=== PATIENT | female | born 1955 | race Caucasian/White ===

== ENCOUNTER → 2024-02-27 | Outpatient (CLI) | payer MEDICARE, BC, SELFPAY ==
[2024-02-27 11:51] LABS: Collection Type, Urine Clean Catch
[2024-02-27 12:15] LABS: Basophils % (Auto) 0 % (0-2.5); Eosinophils # (Auto) 0.1 Thou/mm3 (0.0-0.5); Eosinophils % (Auto) 1 % (0-10); Hemoglobin 13.8 g/dL (12.0-16.0); Immature Granulocytes % (Auto) 1 % (0-0); Immature Granulocytes Auto 0.04 Thou/mm3 (0.00-0.00); Lymphocytes # (Auto) 1.5 Thou/mm3 (1.0-4.8); Lymphocytes % (Auto) 20 % (10-50); Mean Corpuscular HGB Conc 35.4 g/dl (31.0-37.0); Mean Corpuscular Hemoglobin 32.4 pg (25.0-35.0); Mean Corpuscular Volume 92 fL (80-100); Monocytes # (Auto) 0.3 Thou/mm3 (0.0-0.8); Monocytes % (Auto) 4 % (0-12); Neutrophils # (Auto) 5.5 Thou/mm3 (1.8-7.7); Neutrophils % (Auto) 74 % (37-80); Nucleated Red Blood Cell % 0 /100 WBC (0); Platelet Count 208 Thou/mm3 (140-440); RDW Standard Deviation 48.3 fL (36.4-46.3); Red Blood Count 4.26 Miln/mm3 (4.00-5.20); White Blood Count 7.5 Thou/mm3 (3.6-11.0)
[2024-02-27 12:22] LABS: Bilirubin,Urine Negative (Negative); Blood,Urine 1+ (Negative); Clarity,Urine Clear (Clear/Hazy); Color,Urine Colorless (Lt Yel-Yel); Culture Indicated,Urine Not Indicated; Glucose, Urine Negative (Negative); Ketones,Urine Negative (Negative); Leukocyte Esterase,Urine Negative (Negative); Nitrite,Urine Negative (Negative); Protein,Urine Negative (Neg - Trace); RBC,Urine 3 /hpf (0-3); Specific Gravity,Urine 1.004 (1.001-1.035); Squamous Epithelial Cell,Urine < 1 /hpf (0-5); Urobilinogen,Urine Negative mg/dL (0.0-1.0); WBC,Urine 1 /hpf (0-5)
[2024-02-27 12:29] LABS: Glucose Estimated Average 85 mg/dL (80-131); Hemoglobin A1C 4.6 % Hgb (4.8-6.0)
[2024-02-27 12:37] LABS: Vitamin B12 803 pg/mL (211-911); Vitamin D 25 Hydroxy Total 15.8 ng/mL (7.3-40.2)
[2024-02-27 12:45] LABS: Alanine Aminotransferase 11 U/L (10-49); Albumin, Serum 4.6 gm/dL (3.4-4.8); Albumin/Globulin Ratio 2.2 (1.2-2.2); Alkaline Phosphatase 55 U/L (46-116); Anion Gap 6 (7-16); Aspartate Amino Transferase 12 U/L (0-34); BUN/Creatinine Ratio 13 Ratio (12-20); Bilirubin,Total 0.7 mg/dL (0.3-1.2); Blood Urea Nitrogen 8 mg/dL (9-23); Carbon Dioxide 26.1 mMol/L (20.0-31.0); Cardiac Risk Estimate 2.1 RATIO (3.7-5.6); Chloride 110 mMol/L (98-107); Cholesterol 151 mg/dL (132-200); Creatinine (Component) 0.6 mg/dL (0.6-1.3); Globulin 2.1 gm/dL (2.3-3.5); Glucose 94 mg/dL (74-106); HDL Cholesterol 71 mg/dL (40-60); LDL Cholesterol,Calculated 69 mg/dL (0-130); Osmolality,Calculated 281 (275-295); Potassium 3.6 mMol/L (3.4-5.1); Sodium 142 mMol/L (136-145); Thyroid Stimulating Hormone 3.05 uIU/mL (0.55-4.78); Total Protein 6.7 gm/dL (5.7-8.2); Triglycerides 55 mg/dL (30-150); eGFR > 60 See Note
== END | disposition home or self-care (01) ==
LOC: COPL 11:15
PROVIDERS: PCP Family Medicine; Referring Provider Registered Nurse; Visit Provider Registered Nurse
DX: I10 Essential (primary) hypertension (principal); R79.89 Other specified abnormal findings of blood chemistry
CPT/HCPCS: 36415; 80053; 80061; 81001; 82306; 82607; 83036; 84443; 85025

== ENCOUNTER 2024-05-05 09:01 | Emergency (ER) | payer MEDICARE, SELFPAY ==
[2024-05-05 09:14] VITALS: BP 120/76; PULSE 104; RESP 17; TEMP 37; O2SAT 96; BMI 19.5
--- NOTE | 2024-05-05 09:17 | XR_ITS ---
Examination: CT abdomen and pelvis without contrast. Coronal 3-D reconstructions. Sagittal 2-D reconstructions. Date and time of exam:May 05, 2024 0931 hours INDICATIONS: Generalized abdominal pain and constipation beginning 8 days ago CTDI: vol (mGy): 4.31 DLP: (mGycm): 197 Technique: Axial images of the abdomen have been obtained, 3 mm slice thickness Intravenous contrast material has not been administered. Low dose protocols were performed. One or more of the following dose reduction techniques were used; automated exposure control, adjustment of the mA and/or KV according to patient size, use of iterative reconstruction technique. Findings: 11 mm liver cyst, hepatomegaly 18 cm Cholelithiasis Spleen is not enlarged Heavy calcification abdominal aorta and abdominal vasculature Moderate bilateral renal parenchymal calcification 4 mm soft calculus left kidney and multiple 1 to 4 mm calcifications right kidney No hydronephrosis or ureteral calculi No bowel obstruction Normal appendix No pelvic mass Urinary bladder intact Advanced disc narrowing L5-S1 16 mm sclerotic focus upper posterior margin L4 IMPRESSION: Hepatomegaly, 18 cm Cholelithiasis, recommend hepatobiliary sonography follow-up Bilateral nonobstructing renal calculi Normal appendix No bowel obstruction Colonic diverticulosis, no diverticulitis 16mm abnormal sclerotic focus L4, recommend elective MRI lumbar spine pre and postcontrast to exclude osteoblastic metastasis
--- NOTE | 2024-05-05 10:06 | PD.EDRME ---
Rapid Medical Screening Exam RME Arrival date/time: 05/05/24 09:01 68-year-old female presents emergency department complaint of abdominal pain and constipation patient reports he is having for constipation for the last few months patient reports she was supposed to have a colonoscopy but missed her appointment for her colonoscopy patient reports that she is scheduled to have colonoscopy in June with Dr Cardenas Chief Complaint: Abdominal Pain Time Seen by Provider: 05/05/24 09:03 Vital signs: Vital Signs Temperature 98.6 F 05/05/24 09:14 Pulse Rate 104 H 05/05/24 09:14 Respiratory Rate 17 05/05/24 09:14 Blood Pressure 120/76 05/05/24 09:14 Pulse Oximetry (%) 96 05/05/24 09:14 Oxygen Delivery Method Room Air 05/05/24 09:14
[2024-05-05 10:23] LABS: Basophils % (Auto) 0 % (0-2.5); Eosinophils % (Auto) 0 % (0-10); Hematocrit 36.9 % (36.0-46.0); Immature Granulocytes % (Auto) 1 % (0-0); Immature Granulocytes Auto 0.04 Thou/mm3 (0.00-0.00); Lymphocytes % (Auto) 14 % (10-50); Mean Corpuscular HGB Conc 35.2 g/dl (31.0-37.0); Mean Corpuscular Hemoglobin 32.3 pg (25.0-35.0); Mean Corpuscular Volume 92 fL (80-100); Monocytes # (Auto) 0.3 Thou/mm3 (0.0-0.8); Monocytes % (Auto) 4 % (0-12); Neutrophils # (Auto) 5.7 Thou/mm3 (1.8-7.7); Neutrophils % (Auto) 81 % (37-80); Nucleated Red Blood Cell % 0 /100 WBC (0); Platelet Count 161 Thou/mm3 (140-440); RDW Standard Deviation 48.3 fL (36.4-46.3); Red Blood Count 4.02 Miln/mm3 (4.00-5.20)
[2024-05-05 10:48] LABS: Alanine Aminotransferase 10 U/L (10-49); Albumin, Serum 4.3 gm/dL (3.4-4.8); Alkaline Phosphatase 49 U/L (46-116); Anion Gap 8 (7-16); Aspartate Amino Transferase 15 U/L (0-34); BUN/Creatinine Ratio 10 Ratio (12-20); Bilirubin,Total 0.7 mg/dL (0.3-1.2); Blood Urea Nitrogen 6 mg/dL (9-23); Calcium 9.9 mg/dL (8.3-10.6); Calcium (Corrected) 9.9 mg/dL (8.5-10.1); Chloride 106 mMol/L (98-107); Creatinine (Component) 0.6 mg/dL (0.6-1.3); Estimated Creatinine Clearance 72.9 mL/min (>60); Globulin 2.2 gm/dL (2.3-3.5); Glucose 91 mg/dL (74-106); Lipase 23 U/L (12-53); Osmolality,Calculated 275 (275-295); Potassium 3.8 mMol/L (3.4-5.1); Sodium 139 mMol/L (136-145); Total Protein 6.5 gm/dL (5.7-8.2); eGFR > 60 See Note
[2024-05-05 10:52] LABS: Collection Type, Urine Clean Catch
[2024-05-05 11:06] LABS: Bilirubin,Urine Negative (Negative); Blood,Urine 2+ (Negative); Clarity,Urine Clear (Clear/Hazy); Color,Urine Colorless (Lt Yel-Yel); Culture Indicated,Urine Not Indicated; Glucose, Urine Negative (Negative); Ketones,Urine 2+ (Negative); Leukocyte Esterase,Urine Negative (Negative); Nitrite,Urine Negative (Negative); Protein,Urine Negative (Neg - Trace); RBC,Urine 3 /hpf (0-3); Specific Gravity,Urine 1.007 (1.001-1.035); Squamous Epithelial Cell,Urine < 1 /hpf (0-5); Urobilinogen,Urine Negative mg/dL (0.0-1.0); WBC,Urine 1 /hpf (0-5)
--- NOTE | 2024-05-05 12:20 | EDNOTE_ITS ---
ED Abdominal Pain RME/HPI General Chief Complaint: Abdominal Pain Stated complaint: ABD PAIN, NO BM X1 WEEK Time seen by provider: 05/05/24 09:03 Arrival date/time: 05/05/24 09:01 RME / HPI RME / HPI narrative: 05/05/24 09:01 68-year-old female presents emergency department complaint of abdominal pain and constipation patient reports he is having for constipation for the last few months patient reports she was supposed to have a colonoscopy but missed her appointment for her colonoscopy patient reports that she is scheduled to have colonoscopy in June with Dr Cardenas This section includes all my notes and documentations, including HPI, PE, and ED course.? David Talavera MD HPI: 68 year old female with no stated chronic medical history presents to the ED for evaluation of abdominal pain and constipation today. States the constipation began 8 days ago and in the last week is only passing small amounts of brown water , no solid stool. Beginning yesterday has had pain to her lower abdomen L>R, rating as moderate. Accompanied by nausea. Reportedly has attempted magnesium citrate, enema's, stool softeners, and a probiotic colon cleanse without improvement. Denies any fevers, chills, vomiting, or urinary symptoms. ROS: All negative except as documented in HPI. Physical Exam: General:? Alert and oriented.?? Eyes:? Conjunctivae and lids clear.?? ENT:? No nasal congestion.?? Neck:? Supple.?? Heart:? RRR.? Lungs:? No respiratory distress.?? Abdomen:? Soft and nontender.??No distention. No rebound or guarding. Normal BS. Skin:? Warm and dry.?? Neuro:? Alert and oriented X 3.?? I reviewed all diagnostic test results. My review of the CT report shows?no bowel obstruction. Blood tests and urine tests?unremarkable. At this point, diagnoses include?constipation. Recommended conservative treatment. Based on my best medical judgment, made decision no further evaluation or treatment indicated at this time.? Patient understands and agrees to the discharge instructions customized and printed, see below. Discharge instructions from Dr. Talavera printed for you: ?After extensive evaluation, there is no emergency.? Such as appendicitis or complete bowel obstruction needing urgent surgery. --You have constipation. ?Take Senokot S (not plain Senokot, OTC so prescription not needed), four pills, at bedtime as needed.? Add milk of magnesia as prescribed. May take a few days but this will help clear out your bowels. ?To help current constipation and prevent future constipation, increase oral fluid because dehydration cause severe constipation.? Maintain clear urine.? If dark or yellow, increase oral fluid. ?And every day, increase fresh fruits and fresh vegetables and physical exercise. ?See a private doctor on 05/08/2024 for recheck and further care. Ask to review all test results and official radiology reports, to make sure you receive all necessary follow-ups and monitoring. To make sure there is no serious underlying abdominal condition, ask to help you get more care not available here in the ER.? Such as EGD or scoping of your stomach, colonoscopy or scoping the colon, and a referral to see a client technical professional. ?Seek immediate medical care with worsening or with any concerns. Related Data Previous Rx's ?Medication ?Instructions ?Recorded magnesium hydroxide 2,400 mg/10 mL 30 ml PO QDAY PRN constipation #60 05/05/24 oral suspension (Milk Of Magnesia mL Concentrated) sennosides 8.6 mg-docusate sodium 4 tab-cap (4 x 8.6-50 mg) PO QDAY 05/05/24 50 mg tablet (Senokot-S) PRN constipation #20 tabs Allergies Allergy/AdvReac Type Severity Reaction Status Date / Time codeine Allergy Verified 05/05/24 09:04 Penicillins Allergy Verified 05/05/24 09:04 Review of Systems Review of Systems Systems Reviewed: All systems reviewed, normal except as documented Past Medical History Social History SMOKING STATUS: Light (< 1 pack/day) ED Exam Narrative Physical exam: As noted in HPI Course Quality Measures none Orders Category Date Time Status Consult to Gastroenterology Stat Cons 05/05/24 09:[address] abdomen pelvis wo con Stat Exams 05/05/24 09:17 Completed CBC Stat Lab 05/05/24 09:50 Completed Comprehensive Metabolic Panel Stat Lab 05/05/24 09:50 Completed Lipase Stat Lab 05/05/24 09:50 Completed UA, C/S IF [Urinalysis, C/S if Indicated] Stat Lab 05/05/24 10:44 Completed Vital Signs Vital signs: Vital Signs Temperature 98.6 F 05/05/24 09:14 Pulse Rate 104 H 05/05/24 09:14 Respiratory Rate 17 05/05/24 09:14 Blood Pressure 120/76 05/05/24 09:14 Pulse Oximetry (%) 96 05/05/24 09:14 Oxygen Delivery Method Room Air 05/05/24 09:14 Pulse ox is 96% on room air which is adequate. Abdominal Pain MDM MDM Narrative MDM Narrative:: Savanah Jiménez am scribing for and in the presence of Dr. Talavera. Patient data External records reviewed:: [facility] previous records (Per EMR review, no previous visits for review. ) Clinical information provided by:: patient Social determinants that could affect healthcare access:: none Patient has the following chronic illnesses:: None reported How is presenting disease/condition affected by chronic disease/condition?: no chronic disease Evaluation data The following diagnostics were reviewed and interpreted by me:: lab results and radiology exam(s) Lab and/or radiology exams considered but not ordered:: none Interpretation Summary: My review of the CT report shows?no bowel obstruction. Medications / Prescriptions Medications or Prescriptions considered but not ordered:: none Medication administrations:: none Consultations Consultation(s) initiated? (list below): No Diagnosis Differential diagnosis abdominal pain: abdominal pain, calculus of kidney, constipation, diverticulitis, gastroenteritis and small bowel obstruction Most likely diagnosis given after review of the tests above:: Constipation Admission Indicated Admission indicated?: not indicated Explain why admission is indicated or not indicated:: Does not meet admission criteria Admission Request Was there a request for admission?: No Disposition Plan Disposition Plan: Discharge Discharge Attestation Discharge Attestation: The patient and all family members were given an opportunity to ask questions and understood the discharge instructions. Discharge instructions specifically effects, indications for sooner follow up or return to the emergency department, and the expected course of current diagnosis. Patient condition: Stable Discharge Plan Plan Patient Disposition: HOME (Self Care) Prescriptions/Referrals Prescriptions/Med Rec: New sennosides-docusate sodium [Senokot-S] 8.6-50 mg tablet 4 tab-cap PO QDAY PRN (Reason: constipation) Qty: 20 0RF magnesium hydroxide [Milk Of Magnesia Concentrated] 2,400 mg/10 mL suspension 30 ml PO QDAY PRN (Reason: constipation) Qty: 60 0RF Referrals: Danny Belle MD [Primary Care Provider] - In 1 week Problem List Clinical Impression: Constipation Patient/Caregiver Discharge Instructions Discharge Activity: activity as tolerated Education Materials: ED Constipation (Adult) Additional Instructions: Discharge instructions from Dr. Talavera printed for you: ?After extensive evaluation, there is no emergency.? Such as appendicitis or complete bowel obstruction needing urgent surgery. --You have constipation. ?Take Senokot S (not plain Senokot, OTC so prescription not needed), four pills, at bedtime as needed.? Add milk of magnesia as prescribed. May take a few days but this will help clear out your bowels. ?To help current constipation and prevent future constipation, increase oral fluid because dehydration cause severe constipation.? Maintain clear urine.? If dark or yellow, increase oral fluid. ?And every day, increase fresh fruits and fresh vegetables and physical exercise. ?See a private doctor on 05/08/2024 for recheck and further care. Ask to review all test results and official radiology reports, to make sure you receive all necessary follow-ups and monitoring. To make sure there is no serious underlying abdominal condition, ask to help you get more care not available here in the ER.? Such as EGD or scoping of your stomach, colonoscopy or scoping the colon, and a referral to see a client technical professional. ?Seek immediate medical care with worsening or with any concerns. Print Language: Nigerian Stand Alone Forms: [employer] [employer] Info., Patient Portal Info Letter
[2024-05-05 12:38] VITALS: BP 158/81; PULSE 82; RESP 19; TEMP 36.8; O2SAT 97
== END 2024-05-05 12:43 | disposition home or self-care (01) ==
PROVIDERS: Nurse Practitioner Primary Care; Emergency Provider Emergency Medicine; PCP Family Medicine
DX: K59.00 Constipation, unspecified (principal)
CPT/HCPCS: 36415; 74176; 80053; 81001; 83690; 85025; 99284

== ENCOUNTER → 2024-10-14 | Outpatient (CLI) | payer MEDICARE, SELFPAY ==
--- NOTE | 2024-10-14 16:18 | XR_ITS ---
Examination: CT abdomen and pelvis without contrast. Coronal 3-D reconstructions. Sagittal 2-D reconstructions. Date and time of exam:October 14, 2024 at 1652 hours Comparison May 05, 2024 INDICATIONS: Generalized abdominal pain and constipation beginning 5 months ago CTDI: vol (mGy): 4.28 DLP: (mGycm): 200 Technique: Axial images of the abdomen have been obtained, 3 mm slice thickness Intravenous contrast material has not been administered. Low dose protocols were performed. One or more of the following dose reduction techniques were used; automated exposure control, adjustment of the mA and/or KV according to patient size, use of iterative reconstruction technique. Findings: 2 mm pulmonary nodule left lower lobe, 3 mm pulmonary nodule left lower lobe 8 mm hepatic cyst Cholelithiasis No pancreatic mass 1 to 4 mm bilateral renal calculi No hydronephrosis or renal calculi No abdominal aortic aneurysm and dilatation Normal appendix No bowel obstruction Atrophic anteverted uterus Urinary bladder intact Advanced degenerative disc disease L5-S1 IMPRESSION: Subcentimeter pulmonary nodules left lower lobe, with this study is baseline recommend 6 month follow-up CT chest without contrast Cholelithiasis, negative for cholecystitis Bilateral nonobstructing renal calculi Normal appendix No bowel obstruction or diverticulitis
== END | disposition home or self-care (01) ==
PROVIDERS: Referring Provider Surgery; Visit Provider Surgery
DX: R91.8 Other nonspecific abnormal finding of lung field (principal); N20.0 Calculus of kidney; K80.20 Calculus of gallbladder without cholecystitis without obstruction
CPT/HCPCS: 74176

== ENCOUNTER 2024-11-20 07:25 | Day surgery (SDC) | payer MEDICARE, BC, SELFPAY ==
[2024-11-20] VITALS (11 sets, daily range): BP systolic 133–190; BP diastolic 83–110; PULSE 61–92; RESP 12–22; TEMP 36.5–37.2; O2SAT 95–100; BMI 18.3
[2024-11-20] MEDS: SODIUM CHLORIDE 0.9% 500 ML 500 ML 100 ML IV (08:21)
[2024-11-20] MEDS: fentaNYL CIT INJ 50 mCg/ML AMP 2ML (ASD USE ONLY) IVP (08:37)
[2024-11-20] MEDS: MIDAZOLAM INJ 1 MG/ML VIAL 2 ML (ASD USE ONLY) 2 MG IVP (08:41)
== END 2024-11-20 09:39 | disposition home or self-care (01) ==
PROVIDERS: PCP Family Medicine; Referring Provider Surgery; Visit Provider Surgery
PROC: 0DBE8ZX Excision of Large Intestine, Via Natural or Artificial Opening Endoscopic, Diagnostic (ICD-10-PCS; CPT 45380; principal; 2024-11-20 08:30)
DX: D12.2 Benign neoplasm of ascending colon (principal); K63.89 Other specified diseases of intestine; D12.3 Benign neoplasm of transverse colon; K64.1 Second degree hemorrhoids; K64.4 Residual hemorrhoidal skin tags; K57.30 Diverticulosis of large intestine without perforation or abscess without bleeding; I10 Essential (primary) hypertension; F17.200 Nicotine dependence, unspecified, uncomplicated; Z90.11 Acquired absence of right breast and nipple
CPT/HCPCS: 45385; J1200; J2250; J3010; J7999

== ENCOUNTER 2024-11-27 06:20 | Inpatient (IN) | payer MEDICARE, BC, SELFPAY ==
[2024-11-27] VITALS (10 sets, daily range): BP systolic 92–128; BP diastolic 66–99; PULSE 65–103; RESP 16–19; TEMP 36.6–37.2; O2SAT 97–100; BMI 17.2; BMI 17.0
--- NOTE | 2024-11-27 06:31 | XR_ITS ---
Examination: CT abdomen with intravenous contrast CT pelvis with intravenous contrast 2-D coronal reconstructions 2-D sagittal reconstructions Date and time of exam:November 27, 2024, 0925 hours Comparison October 14, 2024 INDICATIONS: Rectal bleeding postcolonoscopy. CTDI: vol (mGy) 8.49 DLP: (mGycm) 309 Technique: Multiple axial sections of the abdomen and pelvis have been obtained. 64 slice high-resolution scanner used. 3 mm axial sections have been obtained, post intravenous injection 60 cc Isovue-[id number], also 30 cc Gastrografin 1 mm water 2-D sagittal, coronal reconstructions obtained. Low dose protocols were performed. One or more of the following dose reduction techniques were used; automated exposure control, adjustment of the mA and/or KV according to patient size, use of iterative reconstruction technique. Findings: 8 mm liver cyst Cholelithiasis, gallbladder wall does appear thickened Spleen is not enlarged No pancreatic mass Contrast distended small bowel loops Heavy abdominal aortic calcification no aneurysmal dilatation Normal appendix Markedly distended urinary bladder No pelvic mass Prominent osteopenia Abnormal sclerosis involving the posterior upper margin of the L4 vertebral body, sagittal image 93 axial image 108, measuring 15 mm IMPRESSION: Recommend hepatobiliary sonography follow-up to exclude acute cholecystitis Contrast distended small bowel loops, consider ileus, enteritis No abnormal extravasation of contrast from the small bowel, there is no significant contrast opacification of the colon Significantly distended urinary bladder, clinical correlation advised 15 mm sclerotic focus L4 vertebral body, differential would include osteoblastic metastasis, recommend MRI lumbar spine follow-up pre and postcontrast
--- NOTE | 2024-11-27 06:58 | PD.EDGIBLD ---
ED GI Bleed RME/HPI General Chief complaint: GI Bleed Stated complaint: Gushing blood rectally Time Seen by Provider: 11/27/24 06:26 Arrival date/time: 11/27/24 06:20 Limitations: no limitations RME / HPI RME / HPI Narrative: DR. BRENDA LOUISE ED EVALUATION: 69-year-old female with past medical history of kidney stones, hypertension, Paget?s disease of the right nipple, and prior mastectomy with reconstruction on the right breast presents to the ED accompanied by her son with rectal bleeding that began two days after undergoing a colonoscopy performed by Dr. Cardenas on , exactly a week ago, for evaluation of chronic constipation. She reports that the bleeding occurs every time she has a bowel movement and has not stopped since the procedure. Social history is notable for heavy tobacco and marijuana use, and prior heavy alcohol use which she quit five years ago. Allergies: Penicillin, codeine Related Data Home Medications ?Medication ?Instructions ?Recorded ?Confirmed nifedipine 90 mg tablet,extended 90 mg PO DAILY 11/20/24 11/20/24 release Allergies Allergy/AdvReac Type Severity Reaction Status Date / Time Penicillins Allergy Intermediate Hives Verified 11/20/24 07:55 codeine Allergy unknown Verified 11/20/24 07:55 Review of Systems Review of Systems Systems Reviewed: All systems reviewed, normal except as documented Past Medical History Past Medical History CARDIAC: Positive Cardiac Disorders and Hypertension GASTROINTESTINAL: Positive Hiatal Hernia, Hemorrhoids and Gastroesophageal Reflux Disease REPRODUCTIVE: Positive Breast Cancer MUSCULOSKELETAL: Positive Arthritis and Fractures HEMATOLOGIC: Positive Anemia OTHER HISTORY: Positive Breast Cancer Surgical History SURGICAL: Positive Section (x2) Social History SMOKING STATUS: Never smoker SUBSTANCE USE: does not use ALCOHOL: Never ED Exam General Limitations: Present no limitations General appearance: Present alert, in no apparent distress and other (frail and pale) Head Head exam: Present atraumatic, normocephalic and normal inspection Eye Eye exam: Present normal appearance, PERRL and EOMI ENT ENT exam: Present normal exam, normal oropharynx and mucous membranes moist Neck Neck exam: Present normal inspection, full ROM and trachea midline Chest Chest inspection: Present normal inspection and symmetric chest wall rise Respiratory Respiratory exam: Present normal lung sounds bilaterally Cardiovascular Cardiovascular exam: Present regular rate, normal rhythm and normal heart sounds Abdominal Exam Abdominal exam: Present soft and normal bowel sounds Extremities Exam Extremities exam: Present normal inspection and full ROM Back Exam Back exam: Present normal inspection and full ROM Neurological Exam Neurological exam: Present alert, oriented X3 and CN II-XII intact Psychiatric Psychiatric exam: Present normal affect and normal mood Skin Skin exam: Present warm, dry, intact and pallor Course Quality Measures none Orders Category Date Time Status CT Screening NOW Care 11/27/24 06:31 Active Consult to Gastroenterology Stat Cons 11/27/24 11:39 Ordered Consult to General Surgery Stat Cons 11/27/24 11:[address] abdomen pelvis w con Stat Exams 11/27/24 06:31 Completed NM GI bleeding Stat Exams 11/27/24 12:13 Ordered CBC Stat Lab 11/27/24 06:45 Completed CMP [Comprehensive Metabolic Panel] Stat Lab 11/27/24 06:45 Completed Hemoglobin and Hematocrit Stat Lab 11/27/24 12:08 Completed INR [Prothrombin Time with INR] Stat Lab 11/27/24 06:45 Completed Lipase Stat Lab 11/27/24 06:45 Completed Red Blood Cells Stat Lab 11/27/24 06:45 Completed Type and Screen Stat Lab 11/27/24 06:45 Completed NA ROLLINS/NAHCO3/JOSE/PEG (Golytely) [Golytely] Med 11/27/24 12:13 Discontinued 4,000 ml PO X1 ONE Reevaluation(s) Reevaluation #1: Patient had a big bowel movement full of blood. Time: 11:10 Vital Signs Vital signs: Vital Signs Temperature 97.8 F 11/27/24 06:40 Pulse Rate 103 H 11/27/24 06:40 Respiratory Rate 19 11/27/24 06:40 Blood Pressure 92/70 11/27/24 06:40 Pulse Oximetry (%) 97 11/27/24 06:40 Oxygen Delivery Method Room Air 11/27/24 06:40 GI Bleed MDM Narrative MDM Narrative:: I, Pastora Nunez am scribing for and in the presence of Dr. Paredes. 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 Vital signs and exam as listed. Concern for perforation, bleeding diverticula, bleeding polyps, hemorrhoid, fissure, among others. Ordered labs, CT abdomen pelvis after medication for symptom relief. Also had conversation with the patient with regards to her CODE STATUS, patient made it very clear that if her heart were to stop or she went to respiratory distress and needed intubation that she does not want to be resuscitated nor intubated. Patient would like to be DNR/DNI. Labs without leukocytosis, no left shift, patient hemoglobin is 10 on prior assessment in April her hemoglobin was 13. While in the emergency department patient had another episode of bright red blood per rectum. I went to go check the toilet toilet bowl was full of blood, not just mixed in stool. No significant acute electrolyte abnormalities, or other significant metabolic disturbances. CT abdomen with contrast distended small loops of bowel, concerning for ileus versus enteritis, also distended urinary bladder. Patient was able to empty her bladder out following the CT with a postvoid residual of 35 cc. I ordered a repeat H&H given patient's recurrent episodes of bright red blood per rectum. I did call Dr. Cardenas, given that he performed a colonoscopy. He recommended that I reach out to Dr. Cadena and if Dr. Cadena needs Dr. Cardenas also consult on the patient, he said he would be available. 12p discussed case with resident team, kindly accept patient for admission. Updated patient and her son at bedside, in agreement with treatment plan and care. Patient data External records reviewed:: [facility] previous records Clinical information provided by:: patient and family Social determinants that could affect healthcare access:: other (specify) (Social history is notable for heavy tobacco and marijuana use, and prior heavy alcohol use which she quit five years ago.) Patient has the following chronic illnesses:: Kidney stones, hypertension, Paget?s disease of the right nipple, and prior mastectomy with reconstruction on the right breast. Recent colonoscopy performed by Dr. Cardenas on , exactly a week ago. Allergies: Penicillin, codeine How is presenting disease/condition affected by chronic disease/condition?: exacerbated by Evaluation data The following diagnostics were reviewed and interpreted by me:: lab results, radiology exam(s) and EKG tracing(s) (My interpretation: EKG performed at 1316 hours, sinus rhythm, rate 75, normal intervals, non specific ST-T wave changes, no cardiac alert) Lab and/or radiology exams considered but not ordered:: none Interpretation Summary: Procedure(s): CT abdomen pelvis w con Accession Number(s): [id number] cc: Rojelio Rosales MD; Danny Belle MD; Micaela Paredes MD~ Examination: CT abdomen with intravenous contrast CT pelvis with intravenous contrast 2-D coronal reconstructions 2-D sagittal reconstructions Date and time of exam:November 27, 2024, 0925 hours Comparison October 14, 2024 INDICATIONS: Rectal bleeding postcolonoscopy. CTDI: vol (mGy) 8.49 DLP: (mGycm) 309 Technique: Multiple axial sections of the abdomen and pelvis have been obtained. 64 slice high-resolution scanner used. 3 mm axial sections have been obtained, post intravenous injection 60 cc Isovue-[id number], also 30 cc Gastrografin 1 mm water 2-D sagittal, coronal reconstructions obtained. Low dose protocols were performed. One or more of the following dose reduction techniques were used; automated exposure control, adjustment of the mA and/or KV according to patient size, use of iterative reconstruction technique. Findings: 8 mm liver cyst Cholelithiasis, gallbladder wall does appear thickened Spleen is not enlarged No pancreatic mass Contrast distended small bowel loops Heavy abdominal aortic calcification no aneurysmal dilatation Normal appendix Markedly distended urinary bladder No pelvic mass Prominent osteopenia Abnormal sclerosis involving the posterior upper margin of the L4 vertebral body, sagittal image 93 axial image 108, measuring 15 mm IMPRESSION: Recommend hepatobiliary sonography follow-up to exclude acute cholecystitis Contrast distended small bowel loops, consider ileus, enteritis No abnormal extravasation of contrast from the small bowel, there is no significant contrast opacification of the colon Significantly distended urinary bladder, clinical correlation advised 15 mm sclerotic focus L4 vertebral body, differential would include osteoblastic metastasis, recommend MRI lumbar spine follow-up pre and postcontrast Dictated By: Rojelio Rosales MD Medications / Prescriptions Medications or Prescriptions considered but not ordered:: none Medication administrations:: Medication Administration History Acetaminophen (Acetaminophen 325 Mg Tablet) 650 mg PO Q6H PRN PRN Reason: Fever >100.4 or pain Stop: 12/27/24 12:29 Sodium Chloride (Ns) 1,000 mls @ 75 mls/hr IV .[id number] IRASEMA Stop: 12/27/24 12:29 Last Admin: 11/27/24 14:12 Dose: 75 mls/hr Documented By: ED Ondansetron HCl (Ondansetron Inj 2 Mg/Ml Inj 2 Ml) 4 mg IVP Q6H PRN; Protocol PRN Reason: NAUSEA OR VOMITING Stop: 12/27/24 12:29 Last Admin: 11/27/24 14:14 Dose: 4 mg Documented By: ED Pantoprazole Sodium (Pantoprazole Inj 40 Mg Vial) 40 mg IVP BID IRASEMA Stop: 12/27/24 12:39 Last Admin: 11/27/24 14:26 Dose: 40 mg Documented By: ED Discontinued Medications Nicotine (Nicotine Patch 14 Mg/24 Hr Patch.Td24) 14 mg TOP X1 ONE Stop: 11/27/24 13:05 Last Admin: 11/27/24 14:27 Dose: 14 mg Documented By: ED Polyethylene Glycol/Electrolytes (Na Rollins/Nahco3/Jose/Peg (Golytely) 4,000 Ml Btl) 4,000 ml PO X1 ONE Stop: 11/27/24 12:14 Sennosides (Senna Tablet) 1 tab PO QDAY PRN; Protocol PRN Reason: constipation Stop: 12/27/24 12:29 see above if any Consultations Consultation(s) initiated? (list below): Yes Consultation #1 (Physician, Specialty, Details): Discussed test HPI, PMHx, lab, radiology results and/or management with resident working with the hospitalist. Will admit for further evaluation and management. Accepts patient for admission. Time: 12:00 Diagnosis GI bleed differential diagnosis: other (Post-polypectomy bleeding, hemorrhoidal bleeding exacerbated by colonoscopy prep, and mucosal injury from the procedure.) Most likely diagnosis given after review of the tests above:: GI bleed Symptomatic anemia Admission Indicated Admission indicated?: indicated Admission Request Was there a request for admission?: Yes Admission Attestation Admission request attestation: Discussed case with [] from Hospitalist service regarding admission. Discussed patients ED course, exam findings, labs, and radiology results. The Hospitalist [agrees,declines] to accept the patient for admission. Disposition Plan Disposition Plan: Admit Critical Care Time Critical Care Time Critical Care Time: Yes Total Critical Care Time (min.): 45 Attestation: The high probability of sudden, clinically significant deterioration in the patient?s condition required the highest level of my preparedness to intervene urgently. The services I provided to this patient were to treat and/or prevent clinically significant deterioration. Services included the following: chart data review, reviewing nursing notes and/or old charts, documentation time, php consultant collaboration regarding findings and treatment options, medication orders and management, direct patient care, vital sign assessments and ordering, interpreting and reviewing diagnostic studies and lab tests. Aggregate critical care time includes only time during which I was engaged in work directly related to the patient?s care, as described above, whether at bedside or elsewhere in the Emergency Department. It did not include time spent performing other reported procedures or the services of residents, students, nurses or physician assistants. Discharge Plan Plan Patient Disposition: Admit Acute Care w/in Hospital Problem List Clinical Impression: GI bleed, Symptomatic anemia
--- NOTE | 2024-11-27 07:13 | PC.NURSE ---
Pt. here from home to room 17, pt. states she drank prune juice last night because she has been so constipated and when she used the RR to have a BM it was bright red blood. Pt. states blood only comes out when she uses the RR. Pt. states unknown why she has has been so constipated, pt. states the plan is to do a EGD and colonoscopy. Pt. states she has kidney stones as well. Warm blankets given, pt. states thank you.
[2024-11-27 07:14] LABS: Basophils # (Auto) 0.0 Thou/mm3 (0.0-0.2); Basophils % (Auto) 0 % (0-2.5); Eosinophils # (Auto) 0.1 Thou/mm3 (0.0-0.5); Eosinophils % (Auto) 1 % (0-10); Hematocrit 29.3 % (36.0-46.0); Hemoglobin 10.0 g/dL (12.0-16.0); Immature Granulocytes Auto 0.10 Thou/mm3 (0.00-0.00); Lymphocytes # (Auto) 2.3 Thou/mm3 (1.0-4.8); Lymphocytes % (Auto) 22 % (10-50); Mean Corpuscular HGB Conc 34.1 g/dl (31.0-37.0); Mean Corpuscular Hemoglobin 33.1 pg (25.0-35.0); Mean Corpuscular Volume 97 fL (80-100); Monocytes # (Auto) 0.4 Thou/mm3 (0.0-0.8); Monocytes % (Auto) 4 % (0-12); Neutrophils # (Auto) 7.9 Thou/mm3 (1.8-7.7); Neutrophils % (Auto) 73 % (37-80); Nucleated Red Blood Cell # 0.00 Thou/mm3 (0.00-0.00); Nucleated Red Blood Cell % 0 /100 WBC (0); Platelet Count 247 Thou/mm3 (140-440); RDW Standard Deviation 52.6 fL (36.4-46.3); Red Blood Count 3.02 Miln/mm3 (4.00-5.20); White Blood Count 10.8 Thou/mm3 (3.6-11.0)
--- NOTE | 2024-11-27 07:20 | PC.NURSE ---
Al from CT here with clear fluid in water bottle for pt. to drink, Al states to let him know when pt. finishes bottle and then 1 hour after pt. finishes drinking fluid let him know and pt. will be ready for CT. Gave to pt. and pt. started drinking tolerating well. Pt. states she will let me know when she finishes fluid.
[2024-11-27 07:30] LABS: INR 1.1 (0.9-1.3); Prothrombin Time 11.6 Seconds (9.0-12.2)
[2024-11-27 07:32] LABS: Alanine Aminotransferase 8 U/L (10-49); Albumin, Serum 4.1 gm/dL (3.4-4.8); Albumin/Globulin Ratio 2.6 (1.2-2.2); Alkaline Phosphatase 41 U/L (46-116); Anion Gap 9 (7-16); Aspartate Amino Transferase 15 U/L (0-34); BUN/Creatinine Ratio 20 Ratio (12-20); Bilirubin,Total 0.6 mg/dL (0.3-1.2); Blood Urea Nitrogen 12 mg/dL (9-23); Calcium 9.5 mg/dL (8.3-10.6); Calcium (Corrected) 9.5 mg/dL (8.5-10.1); Carbon Dioxide 23.2 mMol/L (20.0-31.0); Chloride 110 mMol/L (98-107); Creatinine (Component) 0.6 mg/dL (0.6-1.3); Estimated Creatinine Clearance 63.4 mL/min (>60); Globulin 1.6 gm/dL (2.3-3.5); Glucose 146 mg/dL (74-106); Lipase 29 U/L (12-53); Osmolality,Calculated 285 (275-295); Potassium 3.4 mMol/L (3.4-5.1); Sodium 142 mMol/L (136-145); Total Protein 5.7 gm/dL (5.7-8.2); eGFR > 60 See Note
--- NOTE | 2024-11-27 07:39 | PC.NURSE ---
Pt. states she had a colonoscopy last , done by Dr. Cardenas, pt. states she doesn't have the results yet. Pt.'s son is bedside.
--- NOTE | 2024-11-27 08:09 | PC.NURSE ---
Garcia from CT called and I informed him pt. just finished her fluids and he stated they will come get pt. at 9. Pt. aware and states she wants to rest till then. Pt. lights shut off and pt.'s son states he will step out for a bit.
--- NOTE | 2024-11-27 09:30 | PC.NURSE ---
Pt. in CT.
--- NOTE | 2024-11-27 11:10 | PC.NURSE ---
Dr. Paredes bedside talking with pt., pt. up to RR to have BM and empty her bladder. Pt. son bedside. Pt. had BM and toilet is bright red blood. Dr. Paredes to RR to see BM. Pt. back to bed in room 17.
--- NOTE | 2024-11-27 12:13 | XR_ITS ---
Examination: Nuclear medicine gastrointestinal bleeding study Date and time: November 28, 2024 0847 hours INDICATIONS: Post colonoscopy November 20, 2024, removal polyps, hematochezia episodes TECHNIQUE AND FINDINGS: Intravenous administration 22.6 mCi 99M pertechnetate labeled red blood cells Abdomen imaging obtained 60 seconds per including 90 frames. Normal vascular activity including cardiac activity Increased isotope accumulation in the left upper abdomen as well as right lower abdomen IMPRESSION: Findings consistent with abnormal gastric activity, consider endoscopy follow-up Also abnormal isotope accumulation in the right abdomen in the region of the right colon
--- NOTE | 2024-11-27 12:24 | PC.NURSE ---
Hospitalist team in room talking with pt.
[2024-11-27 12:26] LABS: Hematocrit 22.4 % (36.0-46.0)
[2024-11-27 12:30] LABS: Hemoglobin 7.9 g/dL (12.0-16.0)
--- NOTE | 2024-11-27 12:40 | EKG_ITS ---
[facility] Test Date: 2024-11-27 Pat Name: SYLWIA OROSCO Department: Room: - Gender: Female Bus Assistant: : 1955 Requested By: Marge West Order Number: [id number] Reading MD: Marge West Measurements Intervals [place] Rate: 75 P: 43 [place]: 152 QRS: 33 QRSD: 85 T: 47 QT: 368 QTc: 411 Interpretive Statements SINUS RHYTHM No previous ECG available for comparison /store/S0/[id number]/ecg/[id number].pdf
--- NOTE | 2024-11-27 12:40 | PC.NURSE ---
Dr. Lanier states to give Golytely after NM study is done.
--- NOTE | 2024-11-27 12:55 | ESHP_ITS ---
<Statement entered by Jorge Luis Rivas MD - 11/28/24 14:52> Pt is a 69 year old female with PMH Hx. 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 Pt underwent colonoscopy with Dr. Cardenas couple weeks ago and was told she has significant diverticulosis. Hgb is rapidly down trending, GI is consulted pt will have further work up. Per GI recommendations, will order nuclear scan. Will transfuse if Hgb <7. Patient was seen and examined by me personally. I have directly supervised and reviewed documentation by the team resident and agree with its findings. ------- Plan of care was discussed with the attending, Dr. Adina Rivas, PGY-2 Documentation for date of: 11/27/24 HPI History of Present Illness Chief complaint: Lower GIB History of present illness: [place] pmhx significant for HTN who presents with bleeding per rectum. Patient reports she had a colonoscopy done 11/[address] Cardenas for constipation, has never had a colonoscopy before. Patient states that she had a colonoscopy, bled a little bit per rectum for 2 days after, and then the bleeding stopped until last night when she had a large bloody bowel movement. Patient states that she has a very long history of constipation for years and depends on laxatives for bowel movements. Reports that she has never had bleeding per rectum until the colonoscopy. Endorses 1 episode of shortness of breath and paleness for a short period this morning however resolved by the time she got to the ED. Patient currently denies any pain, shortness of breath, dizziness, lightheadedness, or palpitations. Patient reports that she has lost about 70 pounds within the past few years and she stopped drinking 4 to 5 years ago. 11/20 colonoscopy results showed nonthrombosed external hemorrhoids, nonbleeding internal hemorrhoids diverticulosis without evidence of bleeding, and 3 polyps that were resected. PMHx: hypertension, remote GERD, hx breast cancer Surgical Hx: Rt mastectomy 2007 (finished chemotherapy, no radiation), Paget's disease of breast, Rt breast reconstruction 2008, C section x2 FHx: Extensive cancers on both sides of family Social Hx: Previously a heavy drinker 12-14 beers/day, quit 4-5 years ago. Smokes cigarettes about 1/2-3/4 ppd for the past 15 years Allergies: penicillin (hives), codeine (nausea) Medications: nifedipine 90 mg QD In ED, BP 92/70 HR 103, RR 19, afebrile, satting 97% RA. Significant labs include Hgb 10->7.9. CTAP showed distended small bowel loops significantly distended urinary bladder 15 mm sclerotic focus L4 vertebral body. GI was consulted. Patient was admitted for further workup of GIB. Review of Systems Review of Systems Systems Reviewed: All systems reviewed, normal except as documented Exam Vital Signs Temp Pulse Resp BP Pulse Ox O2 Del Method 98.6 F 84 17 98/66 100 Room Air 11/27/24 11:23 11/27/24 11:23 11/27/24 11:23 11/27/24 11:23 11/27/24 11:23 11/27/24 11:23 Narrative Exam GENERAL: AOx3, no acute distress HEENT: NC/AT, mucous membranes moist, bilateral sclera anicteric CARDIOVASCULAR: regular rate and rhythm, S1/S2 present, no murmurs appreciated PULMONARY: clear to auscultation bilaterally, no rales/rhonchi/wheezes ABDOMINAL: soft, non-tender, non-distended, no rebound/guarding, bowel sounds present EXTREMITIES: no peripheral edema SKIN: warm and dry, intact, no rashes NEURO: CN II-XII grossly intact, no focal deficits, alert, following commands Results: Labs 11/28/24 05:27 11/28/24 05:27 Labs: Short CBC 11/27/24 11/27/24 Range/Units 06:45 12:08 WBC 10.8 (3.6-11.0) Thou/mm3 Hgb 10.0 L 7.9 L D (12.0-16.0) g/dL Hct 29.3 L 22.4 L (36.0-46.0) % Plt Count 247 (140-440) Thou/mm3 BMP 11/27/24 06:45 Sodium 142 Potassium 3.4 Chloride 110 H Carbon Dioxide 23.2 BUN 12 Creatinine 0.6 Glucose 146 H Calcium 9.5 Liver Function 11/27/24 Range/Units 06:45 Total Bilirubin 0.6 (0.3-1.2) mg/dL AST 15 (0-34) U/L ALT 8 L (10-49) U/L Alkaline Phosphatase 41 L (46-116) U/L Albumin 4.1 (3.4-4.8) gm/dL Quality Measures Quality Measures none Advance care planning discussed with:: patient Medications Home Medications and Allergies Home Medications ?Medication ?Instructions ?Recorded ?Confirmed ?Type nifedipine 90 mg tablet,extended 90 mg PO DAILY 11/27/24 History release Allergies Allergy/AdvReac Type Severity Reaction Status Date / Time Penicillins Allergy Intermediate Hives Verified 11/20/24 07:55 codeine Allergy unknown Verified 11/20/24 07:55 Visit Medications Acetaminophen (Acetaminophen 325 Mg Tablet) 650 mg PO Q6H PRN PRN Reason: Fever >100.4 or pain Stop: 12/27/24 12:29 Sodium Chloride (Ns) 1,000 mls @ 75 mls/hr IV .[id number] IRASEMA Stop: 12/27/24 12:29 Ondansetron HCl (Ondansetron Inj 2 Mg/Ml Inj 2 Ml) 4 mg IVP Q6H PRN; Protocol PRN Reason: NAUSEA OR VOMITING Stop: 12/27/24 12:29 Pantoprazole Sodium (Pantoprazole Inj 40 Mg Vial) 40 mg IVP BID IRASEMA Stop: 12/27/24 12:39 Discontinued Medications Polyethylene Glycol/Electrolytes (Na Sosa/Nahco3/Reji/Peg (Golytely) 4,000 Ml Btl) 4,000 ml PO X1 ONE Stop: 11/27/24 12:14 Sennosides (Senna Tablet) 1 tab PO QDAY PRN; Protocol PRN Reason: constipation Stop: 12/27/24 12:29 Assessment & Plan Plan Gabo Germain is a 69F pmhx significant for HTN presented to [facility] ED on 11/27 for bleeding per rectum, admitted for GIB management. #Acute Blood loss anemia #GI Bleed, upper vs lower Patient reports new bleeding per rectum initially started 2 days after colonoscopy on 11/20, and bleeding stopped subsequently, however day prior to admission, reports 1 large bloody bowel movement. Has had 1 episode of shortness of breath paleness morning of admission which has resolved. Admission H&H 02/04.3 and repeat 7.9/22.4. 11/20 colonoscopy results showed non-thrombosed external hemorrhoids, non- bleeding internal hemorrhoids, diverticulosis without evidence of bleeding, and one medium and two large polyps that were resected. Likely lower GI bleed secondary to hemorrhoids however cannot exclude upper GI bleed. Patient has had extensive drinking history prior to 45 years ago. CTAP does not show cirrhosis. Plan: - Type and screen, 2 large bore IVs, transfuse 1 prbc, repeat H&H post transfusion - GI consulted, recs appreciated - Start Golytely - Start IV pantoprazole 40 mg BID - Start maintenance IVF NS 75 cc/hr - NPO now - F/u NM GI scan and EKG #HTN Patient reports that she has a history of hypertension and does not take her BP at home. Takes nifedipine 90 mg QD at home. BP in ED 92/70. Plan: - Hold home BP meds iso soft BP - Resume as appropriate #L4 vertebral body lesion #Concern for metastasis iso #Hx of R breast cancer Patient has had a history of right breast cancer, treated with chemotherapy and mastectomy (2007) as well as reconstruction (2008). 05/05/24 CTAP showed 16mm abnormal sclerotic focus L4 11/28/24 CTAP showed 15 mm sclerotic focus L4 vertebral body differential including osteoblastic metastasis Plan: - Patient was notified regarding spinal lesion - Recommend outpatient oncology workup for further management #Liver cyst, 8 mm #Cholelithiasis #Heavy abdominal aortic calcification #Prominent osteopenia CTAP findings shows 8 mm liver cyst, cholelithiasis, gallbladder wall does appear thickened, heavy abdominal aortic calcification no aneurysmal dilatation, prominent osteopenia Plan: - Patient was notified regarding CTAP findings - Recommend outpatient workup for further management Hospital management: Lines: peripheral IV Diet: NPO Bowel: None GI prophylaxis: IV pantoprazole 40 mg BID DVT prophylaxis: SCDs Disposition: med [facility] for management of GIB CODE STATUS: DNR Plan of care discussed with attending Dr. Holden, and PGY-2 Dr. Rivas. Marge West, DO PGY-1 Internal Medicine Attending Provider Attestation/Addendum I attest that I was physically present for the evaluation, physical examination, lab and imaging review of the patient with the residents. I discussed the case with the residents and agree with the findings and plans of care as documented above. After examination of the patient and review of the clinical data I feel that this patient needs admission to the hospital for further treatment/evaluation . Patient is a 69 years old female with past medical history of hypertension and chronic constipation who presented to the ED with complaint of bleeding per rectum. Patient underwent colonoscopy with Dr. Cardenas on 814 due to constipation for last couple of years. Following with/started having rectal bleeding. Last night she had a large bowel movement with large amount of blood which prompted the visit to the ED. She also states that her stools are dark. She also had an episode of shortness of breath this morning. Patient is also a chronic smoker, used to drink heavily before and stopped 4 to 5 years ago, has lost about 70 pounds within the last year. She also endorses history of GERD and continues to have occasional epigastric discomfort. In the ED, vitals were within normal limits, except for mild tachycardia and soft blood pressure. Hemoglobin noted to be 10 compared to her previous visits of more than 13. Later on it decreased down to 7.9. CT abdomen/pelvis was done, which showed cholelithiasis, mild gallbladder wall thickening, distended small bowel loops concerning for ileus, distended urinary bladder, 15 mm sclerotic focus on L4 vertebral body. We will admit the patient for management of acute blood loss anemia secondary to GI bleeding. We will keep her n.p.o., start her on Protonix IV twice daily, gentle IV hydration. Also ordered 1 unit of PRBC transfusion. Discussed with GI, recommended nuclear medicine GI scan, GoLytely preparation, appreciate recommendations. Ana Rosa Holden MD
--- NOTE | 2024-11-27 13:57 | PC.SS ---
Patient is a 69 year old female presenting to the hospital for GI bleed. CUSTOMER ORDERS CLERK met with patient at bedside, role and reason explained. Patient was alert and oriented. Patient confirmed demographic information and stated that she lives alone is currently employed. Patient reports she does not use any DME. CUSTOMER ORDERS CLERK asked patient in case she is unable to make decision who would she like listed, patient stated that her son Shola PH: [phone] would be the decision maker. Patients PCP is Dr. Villagomez with Dr. Belle?s office. Her pharmacy is [facility]. Her last appointment with PCP was in April of 2024. Patient stated that once she is medically cleared she would like to return home and her son can provide transportation. CUSTOMER ORDERS CLERK inquired if patient has any SS needs, patient stated no. PCP: Dr. Villagomez Decision Maker: Shola Vicente PH: [phone] D/C: Home
--- NOTE | 2024-11-27 14:00 | PC.NURSE ---
Pt. has a port in her chest and states it's from 2008, pt. states Dr. Cardenas told her he's going to remove it.
[2024-11-27] MEDS: SODIUM CHLORIDE 0.9% 1000 ML 1,000 ML 75 ML IV (14:12)
[2024-11-27] MEDS: ONDANSETRON INJ 2 MG/ML INJ 2 ML 4 MG IVP (14:14)
[2024-11-27] MEDS: NICOTINE PATCH 14 MG/24 HR PATCH.TD24 TOP (14:27)
[2024-11-27 20:18] LABS: Hematocrit 23.0 % (36.0-46.0)
[2024-11-27 20:22] LABS: Hemoglobin 8.1 g/dL (12.0-16.0)
--- NOTE | 2024-11-27 21:18 | PD.IMCONS ---
HPI Data of Consult Requesting Physician: Ana Rosa Holden MD Primary Care Provider: Danny Belle MD Consult Narrative Reason for consult: Hematochezia History of present illness: 69 years old female came into the emergency room with multiple episodes of hematochezia CT abdomen pelvis was negative except for a 50 mm sclerotic lesion in L4 Patient did have a colonoscopy on 11/20/2024 which led to removal of an ascending colon polyp and 2 polyps in the hepatic flexure area Hemoglobin hematocrit on 05/05/2024 was 13.0 and 36.9 and on presentation it was 10.0 and 29.3 which has gone down to 7.9 and 22.4 with a platelet count of 247,000 cc:: cc: Ana Rosa Holden MD Review of Systems Review of Systems Systems Reviewed: All systems reviewed, normal except as documented Past Medical History Surgical History OTHER SURGICAL HX: Breast carcinoma Essential hypertension Meds Home Medications and Allergies Home Medications ?Medication ?Instructions ?Recorded ?Confirmed ?Type nifedipine 90 mg tablet,extended 90 mg PO DAILY 11/20/24 11/20/24 History release Allergies Allergy/AdvReac Type Severity Reaction Status Date / Time Penicillins Allergy Intermediate Hives Verified 11/20/24 07:55 codeine Allergy unknown Verified 11/20/24 07:55 Exam Vital Signs Temp Pulse Resp BP Pulse Ox O2 Del Method 98.3 F 71 17 104/74 98 Room Air 11/27/24 18:29 11/27/24 18:29 11/27/24 17:45 11/27/24 18:29 11/27/24 18:29 11/27/24 18:29 Routine Respiratory Exam Comments: Normal to auscultation Routine Abdominal Exam Comments: Soft nontender Results Labs 11/27/24 20:09 11/27/24 06:45 Labs: Short CBC 11/27/24 11/27/24 11/27/24 Range/Units 06:45 12:08 20:09 WBC 10.8 (3.6-11.0) Thou/mm3 Hgb 10.0 L 7.9 L D 8.1 L (12.0-16.0) g/dL Hct 29.3 L 22.4 L 23.0 L (36.0-46.0) % Plt Count 247 (140-440) Thou/mm3 BMP 11/27/24 06:45 Sodium 142 Potassium 3.4 Chloride 110 H Carbon Dioxide 23.2 BUN 12 Creatinine 0.6 Glucose 146 H Calcium 9.5 Liver Function 11/27/24 Range/Units 06:45 Total Bilirubin 0.6 (0.3-1.2) mg/dL AST 15 (0-34) U/L ALT 8 L (10-49) U/L Alkaline Phosphatase 41 L (46-116) U/L Albumin 4.1 (3.4-4.8) gm/dL Assessment and Plan Additional Assessment & Plan Additional Plan: # Hematochezia Plan Clear liquid diet GoLytely prep Fiberoptic colonoscopy with possible biopsy possible therapeutic intervention under intravenous moderate sedation Consent obtained procedure has been tentatively scheduled for tomorrow Thank you for the opportunity to participate in the care of this patient
--- NOTE | 2024-11-27 21:41 | PC.NURSE ---
per Dr. Cadena, start pt on clear liquid diet and start golytely now.
[2024-11-27] MEDS: NA SU/NAHCO3/KC/PEG (Golytely) 4,000 ML BTL 4000 ML PO (21:52)
[2024-11-28] VITALS (35 sets, daily range): BP systolic 100–149; BP diastolic 64–95; PULSE 57–93; RESP 12–95; TEMP 35.9–37.2; O2SAT 92–100
[2024-11-28] MEDS: SODIUM CHLORIDE 0.9% 1000 ML 1,000 ML 75 ML IV (04:40)
[2024-11-28 06:12] LABS: Basophils # (Auto) 0.0 Thou/mm3 (0.0-0.2); Basophils % (Auto) 0 % (0-2.5); Eosinophils # (Auto) 0.0 Thou/mm3 (0.0-0.5); Eosinophils % (Auto) 1 % (0-10); Hematocrit 21.4 % (36.0-46.0); Immature Granulocytes Auto 0.02 Thou/mm3 (0.00-0.00); Lymphocytes # (Auto) 0.9 Thou/mm3 (1.0-4.8); Lymphocytes % (Auto) 23 % (10-50); Mean Corpuscular HGB Conc 34.1 g/dl (31.0-37.0); Mean Corpuscular Hemoglobin 32.0 pg (25.0-35.0); Mean Corpuscular Volume 94 fL (80-100); Monocytes # (Auto) 0.2 Thou/mm3 (0.0-0.8); Monocytes % (Auto) 5 % (0-12); Neutrophils # (Auto) 2.7 Thou/mm3 (1.8-7.7); Neutrophils % (Auto) 71 % (37-80); Nucleated Red Blood Cell # 0.00 Thou/mm3 (0.00-0.00); Nucleated Red Blood Cell % 0 /100 WBC (0); Platelet Count 123 Thou/mm3 (140-440); RDW Standard Deviation 55.6 fL (36.4-46.3); Red Blood Count 2.28 Miln/mm3 (4.00-5.20); White Blood Count 3.8 Thou/mm3 (3.6-11.0)
[2024-11-28 06:14] LABS: Hemoglobin 7.3 g/dL (12.0-16.0)
[2024-11-28 07:01] LABS: Alanine Aminotransferase < 7 U/L (10-49); Albumin, Serum 3.0 gm/dL (3.4-4.8); Alkaline Phosphatase 29 U/L (46-116); Anion Gap 8 (7-16); Aspartate Amino Transferase < 8 U/L (0-34); BUN/Creatinine Ratio 18 Ratio (12-20); Blood Urea Nitrogen 9 mg/dL (9-23); Calcium 8.7 mg/dL (8.3-10.6); Calcium (Corrected) 9.5 mg/dL (8.5-10.1); Carbon Dioxide 26.8 mMol/L (20.0-31.0); Chloride 111 mMol/L (98-107); Creatinine (Component) 0.5 mg/dL (0.6-1.3); Estimated Creatinine Clearance 75.6 mL/min (>60); Glucose 85 mg/dL (74-106); Magnesium 1.8 mg/dL (1.6-2.6); Osmolality,Calculated 288 (275-295); Phosphorous 2.6 mg/dL (2.4-5.1); Potassium 3.6 mMol/L (3.4-5.1); Sodium 146 mMol/L (136-145); eGFR > 60 See Note
[2024-11-28 07:02] LABS: Albumin/Globulin Ratio 1.9 (1.2-2.2); Bilirubin,Total 0.6 mg/dL (0.3-1.2); Globulin 1.6 gm/dL (2.3-3.5); Total Protein 4.6 gm/dL (5.7-8.2)
[2024-11-28] MEDS: NICOTINE PATCH 14 MG/24 HR PATCH.TD24 TOP (11:15)
--- NOTE | 2024-11-28 15:03 | ESPR_ITS ---
<Statement entered by Jorge Luis Rivas MD - 11/29/24 16:25> Pt is seen at bedside, Pending EGD and colonoscopy today. otherwise Pt does not have any complaints. Patient was seen and examined by me personally. I have directly supervised and reviewed documentation by the team resident and agree with its findings. ------- Plan of care was discussed with the attending, Dr. Adina Rivas, PGY-2 Documentation for date of: 11/28/24 Subjective Subjective Interval history: No acute overnight. Patient seen and examined at bedside. States that she has had 1 bowel movement with clotting, as stool is cleared with GoLytely associated with lower back cramping. Currently denies any abdominal pain, urinary symptoms, lightheadedness, dizziness, or palpitations. AM H&H 7.3/21.4 and platelets 123. Transfused 1 PRBC, will follow-up post transfusion CBC, low threshold to transfuse again and 1 unit PRBCs already on hold as of this morning. NM GI bleed study showed abnormal gastric activity and increased isotope accumulation in the right abdomen in the region of the right colon as well as the left upper abdomen. Planned for colonoscopy today, will likely need EGD tomorrow. Discussed with patient regarding possible oncology consult, she says she needs to think about it. Exam Vital Signs Temp Pulse Resp BP Pulse Ox O2 Del Method 98.8 F 78 18 101/83 98 Room Air 11/28/24 12:00 11/28/24 12:00 11/28/24 12:00 11/28/24 12:00 11/28/24 12:00 11/28/24 12:00 Narrative Exam GENERAL: AOx3, no acute distress HEENT: NC/AT, mucous membranes moist, bilateral sclera anicteric CARDIOVASCULAR: regular rate and rhythm, S1/S2 present, no murmurs appreciated PULMONARY: clear to auscultation bilaterally, no rales/rhonchi/wheezes ABDOMINAL: firm, non-tender, non-distended, no rebound/guarding, bowel sounds present EXTREMITIES: no peripheral edema SKIN: warm and dry, intact, no rashes, +scar across lower abdomen from prior C sections NEURO: CN II-XII grossly intact, no focal deficits, alert, following commands Objective Labs 11/29/24 15:11 11/29/24 04:55 Labs: Laboratory Results - last 24 hr 11/27/24 11/27/24 11/28/24 06:45 20:09 05:27 WBC 3.8 D RBC 2.28 L Hgb 8.1 L 7.3 L Hct 23.0 L 21.4 L* MCV 94 MCH 32.0 MCHC 34.1 RDW Std Deviation 55.6 H Plt Count 123 L D Neut % (Auto) 71 Lymph % (Auto) 23 Hoke % (Auto) 5 Eos % (Auto) 1 Baso % (Auto) 0 Neut # (Auto) 2.7 Lymph # (Auto) 0.9 L Hoke # (Auto) 0.2 Eos # (Auto) 0.0 Baso # (Auto) 0.0 Immature Gran # (Auto) 0.02 H Absolute Nucleated RBC 0.00 Immature Gran % 1 H Nucleated RBC % 0 Sodium 146 H Potassium 3.6 Chloride 111 H Carbon Dioxide 26.8 Anion Gap 8 BUN 9 Creatinine 0.5 L Estim Creat Clear Calc 75.6 eGFR > 60 BUN/Creatinine Ratio 18 Glucose 85 D Calculated Osmolality 288 Calcium 8.7 Corrected Calcium 9.5 Phosphorus 2.6 Magnesium 1.8 Total Bilirubin 0.6 AST < 8 ALT < 7 L Alkaline Phosphatase 29 L D Total Protein 4.6 L Albumin 3.0 L D Globulin 1.6 L Albumin/Globulin Ratio 1.9 Blood Type O Negative Antibody Screen NEGATIVE Crossmatch See Detail Blood Bank Wristband ID Yes Quality Measures Quality Measures none Advance care planning discussed with:: patient Assessment & Plan Assessment Current Active Medications: Generic Name Dose Route Start Last Admin Trade Name Freq PRN Reason Stop Dose Admin Acetaminophen 650 mg 11/27/24 12:30 Acetaminophen 325 Mg Tablet PO 12/27/24 12:29 Q6H PRN Fever >100.4 or pain Nicotine 14 mg 11/28/24 09:00 11/28/24 11:15 Nicotine Patch 14 Mg/24 Hr Patch.Td24 TOP 12/28/24 08:59 14 mg QDAY IRASEMA Administration Ondansetron HCl 4 mg 11/27/24 12:30 11/27/24 14:14 Ondansetron Inj 2 Mg/Ml Inj 2 Ml IVP 12/27/24 12:29 4 mg Q6H PRN Administration NAUSEA OR VOMITING Protocol Pantoprazole Sodium 40 mg 11/27/24 12:40 11/28/24 08:29 Pantoprazole Inj 40 Mg Vial IVP 12/27/24 12:39 40 mg BID IRASEMA Administration Plan Gabo Germain is a 69F pmhx significant for HTN and hx of R breast cancer s/p chemo and mastectomy (2007) presented to [facility] ED on 11/27 for bleeding per rectum, admitted for GIB management and acute blood loss anemia. #Acute Blood loss anemia #GI Bleed, upper vs lower #Thrombocytopenia Patient reports new bleeding per rectum initially for 2 days after colonoscopy on 11/20. Bleeding stopped subsequently, however day prior to admission, reports 1 large bloody bowel movement. Admission H&H 10/29.3 and repeat 7.9/22.4. Post transfusion H&H 8.1/23. / AM H&H decreased to 7.3/21.4. Admission platelets 247, however decreased to 123 11/20 colonoscopy results showed non-thrombosed external hemorrhoids, non- bleeding internal hemorrhoids, diverticulosis without evidence of bleeding, and one medium and two large polyps that were resected. Likely lower GI bleed secondary to hemorrhoids however cannot exclude upper GI bleed. Patient has had extensive drinking history prior to 45 years ago. CTAP does not show cirrhosis. NM GI bleed study showed abnormal gastric activity and increased isotope accumulation in the right abdomen in the region of the right colon as well as the left upper abdomen s/p 2 prbc (11/27, 11/28, ) Plan: - Transfuse 1 prbc today - F/u PM CBC - GI consulted, recs appreciated: colonoscopy today - Will likely need EGD following colonoscopy giving NM GIB study - Continue Golytely - IV pantoprazole 40 mg BID - Encourage oral hydration - CLD #HTN Patient reports that she has a history of hypertension and does not take her BP at home. Takes nifedipine 90 mg QD at home. BP in ED 92/70. Plan: - Hold home BP meds iso soft BP - Resume as appropriate #L4 vertebral body lesion #Concern for metastasis iso #Hx of R breast cancer Patient has had a history of right breast cancer, treated with chemotherapy and mastectomy (2007) as well as reconstruction (2008). 05/05/24 CTAP showed 16mm abnormal sclerotic focus L4 11/28/24 CTAP showed 15 mm sclerotic focus L4 vertebral body differential including osteoblastic metastasis Plan: - Patient was notified regarding spinal lesion - Recommend outpatient oncology workup for further management #Liver cyst, 8 mm #Cholelithiasis #Heavy abdominal aortic calcification #Prominent osteopenia CTAP findings shows 8 mm liver cyst, cholelithiasis, gallbladder wall does appear thickened, heavy abdominal aortic calcification no aneurysmal dilatation, prominent osteopenia Plan: - Patient was notified regarding CTAP findings - Recommend outpatient workup for further management Hospital management: Lines: peripheral IV Diet: NPO Bowel: None GI prophylaxis: IV pantoprazole 40 mg BID DVT prophylaxis: SCDs Disposition: med [facility] for management of GIB CODE STATUS: DNR Plan of care discussed with attending Dr. Holden, and PGY-2 Dr. Rivas. Marge West, DO PGY-1 Internal Medicine Attending Provider Attestation/Addendum I attest that I was physically present for the evaluation, physical examination, lab and imaging review of the patient with the residents. I discussed the case with the residents and agree with the findings and plans of care as documented above. Ana Rosa Holden MD
[2024-11-28 15:53] LABS: Basophils # (Auto) 0.0 Thou/mm3 (0.0-0.2); Basophils % (Auto) 0 % (0-2.5); Eosinophils # (Auto) 0.0 Thou/mm3 (0.0-0.5); Eosinophils % (Auto) 1 % (0-10); Hematocrit 22.6 % (36.0-46.0); Immature Granulocytes Auto 0.02 Thou/mm3 (0.00-0.00); Lymphocytes # (Auto) 1.5 Thou/mm3 (1.0-4.8); Lymphocytes % (Auto) 34 % (10-50); Mean Corpuscular HGB Conc 35.0 g/dl (31.0-37.0); Mean Corpuscular Hemoglobin 32.2 pg (25.0-35.0); Mean Corpuscular Volume 92 fL (80-100); Monocytes # (Auto) 0.2 Thou/mm3 (0.0-0.8); Monocytes % (Auto) 6 % (0-12); Neutrophils # (Auto) 2.6 Thou/mm3 (1.8-7.7); Neutrophils % (Auto) 59 % (37-80); Nucleated Red Blood Cell # 0.00 Thou/mm3 (0.00-0.00); Nucleated Red Blood Cell % 0 /100 WBC (0); Platelet Count 121 Thou/mm3 (140-440); RDW Standard Deviation 50.7 fL (36.4-46.3); Red Blood Count 2.45 Miln/mm3 (4.00-5.20); White Blood Count 4.4 Thou/mm3 (3.6-11.0)
[2024-11-28 16:04] LABS: Hemoglobin 7.9 g/dL (12.0-16.0)
[2024-11-28 16:12] LABS: Thyroid Stimulating Hormone 4.85 uIU/mL (0.55-4.78)
--- NOTE | 2024-11-28 16:26 | PC.SS ---
rounding note: pending transfusion pending gi rec, colonoscopy.
[2024-11-28 16:37] LABS: INR 1.1 (0.9-1.3); Partial Thromboplastin Time 27.0 Seconds (22.0-36.0); Prothrombin Time 12.4 Seconds (9.0-12.2)
--- NOTE | 2024-11-28 17:05 | PC.NURSE ---
pt to endo via braden
[2024-11-28] MEDS: SODIUM CHLORIDE 0.9% 500 ML 500 ML 20 ML IV (17:50)
[2024-11-28] MEDS: EPINEPHrine INJ 0.1 MG/ML SYRINGE 10ML 1 MG IVP (18:15)
[2024-11-28] MEDS: GLUCAGON INJ 1 MG VIAL IVP (18:18)
--- NOTE | 2024-11-28 19:18 | SUR.PHASEI ---
190 patient is sleepy and arousable, able to follow verbal commands, breathing unlabored. S/P EGD and colonoscopy under IV sedation. Report received from Monica CHIN
--- NOTE | 2024-11-28 19:50 | SUR.PHASEI ---
1950 patient is sleepy and arosable, breathing unlabored, vital signs stable, report given to Paola CHIN, patient transferred back to room 373 with tele box
[2024-11-28] MEDS: ONDANSETRON INJ 2 MG/ML INJ 2 ML 4 MG IVP (20:03)
[2024-11-29] VITALS (8 sets, daily range): BP systolic 104–125; BP diastolic 70–78; PULSE 73–86; RESP 12–98; TEMP 36–37; O2SAT 94–98
[2024-11-29] MEDS: ACETAMINOPHEN 325 MG TABLET 650 MG PO (04:33)
[2024-11-29 05:47] LABS: Basophils # (Auto) 0.0 Thou/mm3 (0.0-0.2); Basophils % (Auto) 0 % (0-2.5); Eosinophils # (Auto) 0.0 Thou/mm3 (0.0-0.5); Eosinophils % (Auto) 0 % (0-10); Hematocrit 21.5 % (36.0-46.0); Hemoglobin 7.5 g/dL (12.0-16.0); Immature Granulocytes Auto 0.07 Thou/mm3 (0.00-0.00); Lymphocytes # (Auto) 0.9 Thou/mm3 (1.0-4.8); Lymphocytes % (Auto) 11 % (10-50); Mean Corpuscular HGB Conc 34.9 g/dl (31.0-37.0); Mean Corpuscular Hemoglobin 32.5 pg (25.0-35.0); Mean Corpuscular Volume 93 fL (80-100); Monocytes # (Auto) 0.3 Thou/mm3 (0.0-0.8); Monocytes % (Auto) 4 % (0-12); Neutrophils # (Auto) 7.5 Thou/mm3 (1.8-7.7); Neutrophils % (Auto) 85 % (37-80); Nucleated Red Blood Cell # 0.00 Thou/mm3 (0.00-0.00); Nucleated Red Blood Cell % 0 /100 WBC (0); Platelet Count 97 Thou/mm3 (140-440); RDW Standard Deviation 51.6 fL (36.4-46.3); Red Blood Count 2.31 Miln/mm3 (4.00-5.20); White Blood Count 8.9 Thou/mm3 (3.6-11.0)
[2024-11-29 06:23] LABS: Alanine Aminotransferase < 7 U/L (10-49); Albumin, Serum 2.9 gm/dL (3.4-4.8); Albumin/Globulin Ratio 2.2 (1.2-2.2); Alkaline Phosphatase 28 U/L (46-116); Anion Gap 7 (7-16); Aspartate Amino Transferase < 10 U/L (0-34); BUN/Creatinine Ratio 8 Ratio (12-20); Bilirubin,Total 0.6 mg/dL (0.3-1.2); Blood Urea Nitrogen < 5 mg/dL (9-23); Calcium 8.9 mg/dL (8.3-10.6); Calcium (Corrected) 9.8 mg/dL (8.5-10.1); Carbon Dioxide 26.0 mMol/L (20.0-31.0); Chloride 109 mMol/L (98-107); Creatinine (Component) 0.6 mg/dL (0.6-1.3); Estimated Creatinine Clearance 63.0 mL/min (>60); Globulin 1.3 gm/dL (2.3-3.5); Glucose 111 mg/dL (74-106); Magnesium 1.5 mg/dL (1.6-2.6); Osmolality,Calculated 281 (275-295); Phosphorous 3.6 mg/dL (2.4-5.1); Potassium 3.3 mMol/L (3.4-5.1); Sodium 142 mMol/L (136-145); Total Protein 4.2 gm/dL (5.7-8.2); eGFR > 60 See Note
[2024-11-29] MEDS: NICOTINE PATCH 14 MG/24 HR PATCH.TD24 TOP (08:35)
[2024-11-29] MEDS: Magnesium Sulfate 4 GM Ivpb 4 GM/50 ML BAG IV (09:27)
--- NOTE | 2024-11-29 12:45 | ESPR_ITS ---
Documentation for date of: 11/29/24 Subjective Subjective Interval history: Overnight events: No acute events overnight. Patient was seen and examined at bedside. AM vitals and labs reviewed. Patient has no complaints at this time. Does note some pain in left abdomen, but it is not new for her. Does note that she has difficulty with bowel movements and wants more advice as to how to have regular bowel movements without using medication. Advised increasing fiber intake and following up with GI outpatient. AM hemoglobin 7.5, 3rd pRBC transfusion bag ready if needed. EGD performed yesterday showed gastritis. Colonoscopy performed yesterday showed hemorrhoids on perianal exam, blood throughout the colon and all the way up to cecum, and visible blood vessel at site of polypectomy oozing blood in the cecum. Epinephrine, utero, endoclips were used to achieve hemostasis. Repeat H&H at 1511 showed hemoglobin 8.[address] Cadena, GI, who stated that patient can resume regular diet. Pending free T4 tomorrow. Review of systems otherwise negative except for what is mentioned above. Exam Vital Signs Temp Pulse Resp BP Pulse Ox O2 Del Method O2 Flow Rate 98.6 F 75 15 116/73 98 Nasal Cannula 3 11/29/24 12:35 11/29/24 12:35 11/29/24 12:35 11/29/24 12:35 11/29/24 12:35 11/29/24 08:46 11/28/24 18:59 Narrative Exam Physical Exam: General: Alert, no acute distress. Skin: Warm, dry, intact, no obvious rash. Head: Normocephalic, atraumatic. Eye: Normal conjunctiva, PERRL. Throat: Oral mucosa moist. No obvious lesions in oropharynx. Cardiovascular: Regular rate and rhythm, no murmur, +S1/S2. Respiratory: Lungs are clear to auscultation, respirations unlabored, no crackles, no wheezing. Gastrointestinal: Soft, nontender, non-distended. No guarding or rebound tenderness. Extremities: No edema, no cyanosis, no clubbing. 2+ radial pulse bilaterally, 2+ pedal pulse bilaterally. Neuro: No focal deficits observed. Conversant, moving all extremities. No overt cerebellar signs/incoordination. Psychiatric: Cooperative, appropriate affect. Objective Labs 11/29/24 15:11 11/29/24 04:55 Labs: Laboratory Results - last 24 hr 11/27/24 11/28/24 11/29/24 06:45 15:29 04:55 WBC 4.4 8.9 D RBC 2.45 L 2.31 L Hgb 7.9 L 7.5 L Hct 22.6 L 21.5 L* MCV 92 93 MCH 32.2 32.5 MCHC 35.0 34.9 RDW Std Deviation 50.7 H 51.6 H Plt Count 121 L 97 L Neut % (Auto) 59 85 H Lymph % (Auto) 34 11 [place] % (Auto) 6 4 Eos % (Auto) 1 0 Baso % (Auto) 0 0 Neut # (Auto) 2.6 7.5 Lymph # (Auto) 1.5 0.9 L [place] # (Auto) 0.2 0.3 Eos # (Auto) 0.0 0.0 Baso # (Auto) 0.0 0.0 Immature Gran # (Auto) 0.02 H 0.07 H Absolute Nucleated RBC 0.00 0.00 Immature Gran % 1 H 1 H Nucleated RBC % 0 0 PT 12.4 H INR 1.1 APTT 27.0 Sodium 142 Potassium 3.3 L Chloride 109 H Carbon Dioxide 26.0 Anion Gap 7 BUN < 5 L Creatinine 0.6 Estim Creat Clear Calc 63.0 eGFR > 60 BUN/Creatinine Ratio 8 L Glucose 111 H Calculated Osmolality 281 Calcium 8.9 Corrected Calcium 9.8 Phosphorus 3.6 Magnesium 1.5 L Total Bilirubin 0.6 AST < 10 ALT < 7 L Alkaline Phosphatase 28 L Total Protein 4.2 L Albumin 2.9 L Globulin 1.3 L Albumin/Globulin Ratio 2.2 TSH 4.85 H Crossmatch See Detail Quality Measures Quality Measures none Advance care planning discussed with:: patient, spouse and child Assessment & Plan Assessment Current Active Medications: Generic Name Dose Route Start Last Admin Trade Name Freq PRN Reason Stop Dose Admin Acetaminophen 650 mg 11/27/24 12:30 11/29/24 04:33 Acetaminophen 325 Mg Tablet PO 12/27/24 12:29 650 mg Q6H PRN Administration Fever >100.4 or pain Sodium Chloride 500 mls @ 20 mls/hr 11/28/24 17:50 11/28/24 17:50 Ns IV 11/29/24 17:49 20 mls/hr .Q24H ONE Administration Magnesium Sulfate 4 gm in 50 mls @ 12.5 mls/hr 11/29/24 08:47 11/29/24 09:27 Magnesium Sulfate Ivpb IV 11/29/24 12:46 12.5 mls/hr X1 ONE Administration Nicotine 14 mg 11/28/24 09:00 11/29/24 08:35 Nicotine Patch 14 Mg/24 Hr Patch.Td24 TOP 12/28/24 08:59 14 mg QDAY IRASEMA Administration Ondansetron HCl 4 mg 11/27/24 12:30 11/28/24 20:03 Ondansetron Inj 2 Mg/Ml Inj 2 Ml IVP 12/27/24 12:29 4 mg Q6H PRN Administration NAUSEA OR VOMITING Protocol Pantoprazole Sodium 40 mg 11/27/24 12:40 11/29/24 08:35 Pantoprazole Inj 40 Mg Vial IVP 12/27/24 12:39 40 mg BID IRASEMA Administration Plan Gabo Germain is a 69F pmhx significant for HTN and hx of R breast cancer s/p chemo and mastectomy (2007) presented to [facility] ED on 11/27 for bleeding per rectum, admitted for GIB management and acute blood loss anemia. #Acute Blood loss anemia #GI Bleed, upper vs lower #Thrombocytopenia Patient reports new bleeding per rectum initially for 2 days after colonoscopy on 11/20. Bleeding stopped subsequently, however day prior to admission, reports 1 large bloody bowel movement. Admission H&H 10/29.3 and repeat 7.9/22.4. Post transfusion H&H 8.1/23. 8/ AM H&H decreased to 7.3/21.4. Admission platelets 247, however decreased to 123 11/20 colonoscopy results showed non-thrombosed external hemorrhoids, non- bleeding internal hemorrhoids, diverticulosis without evidence of bleeding, and one medium and two large polyps that were resected. Likely lower GI bleed secondary to hemorrhoids however cannot exclude upper GI bleed. Patient has had extensive drinking history prior to 45 years ago. CTAP does not show cirrhosis. NM GI bleed study showed abnormal gastric activity and increased isotope accumulation in the right abdomen in the region of the right colon as well as the left upper abdomen EGD performed 11/28 showed gastritis. Colonoscopy performed 11/28 showed hemorrhoids on perianal exam, blood throughout the colon and all the way up to cecum, and visible blood vessel at site of polypectomy oozing blood in the cecum. Epinephrine, utero, endoclips were used to achieve hemostasis s/p 2 prbc (11/27 and 11/28) Plan: - GI consulted, recs appreciated - IV pantoprazole 40 mg BID - Encourage oral hydration - CLD - Pt to f/u outpatient #HTN Patient reports that she has a history of hypertension and does not take her BP at home. Takes nifedipine 90 mg QD at home. BP in ED 92/70. Plan: - Hold home BP meds iso soft BP - Resume as appropriate #L4 vertebral body lesion #Concern for metastasis iso #Hx of R breast cancer Patient has had a history of right breast cancer, treated with chemotherapy and mastectomy (2007) as well as reconstruction (2008). 05/05/24 CTAP showed 16mm abnormal sclerotic focus L4 11/28/24 CTAP showed 15 mm sclerotic focus L4 vertebral body differential including osteoblastic metastasis Plan: - Patient was notified regarding spinal lesion - Recommend outpatient oncology workup for further management #Liver cyst, 8 mm #Cholelithiasis #Heavy abdominal aortic calcification #Prominent osteopenia CTAP findings shows 8 mm liver cyst, cholelithiasis, gallbladder wall does appear thickened, heavy abdominal aortic calcification no aneurysmal dilatation, prominent osteopenia Plan: - Patient was notified regarding CTAP findings - Recommend outpatient workup for further management #Hypokalemia Patient had potassium of 3.3 on 11/29. Plan: - Monitor daily labs, replete potassium as needed #Hypomagnesemia Patient had magnesium of 1.5 on 11/29. Plan: - Monitor daily labs, replete magnesium as needed Hospital management: Lines: peripheral IV Diet: Regular Bowel: None GI prophylaxis: IV pantoprazole 40 mg BID DVT prophylaxis: SCDs Disposition: med tele for management of GIB CODE STATUS: DNR Plan of care discussed with attending Dr. Holden. Adam Felipe DO PGY-1 Internal Medicine Attending Provider Attestation/Addendum I attest that I was physically present for the evaluation, physical examination, lab and imaging review of the patient with the residents. I discussed the case with the residents and agree with the findings and plans of care as documented above. Ana Rosa Holden MD
--- NOTE | 2024-11-29 16:17 | PD.IMPROG ---
Documentation for date of: 11/29/24 Subjective Subjective Interval history: Patient evaluated Hemoglobin hematocrit 7.5 and 21.5 Colonoscopy showed the bleeding site to be the cecal polyp with visible blood vessel requiring epinephrine injection bipolar gold heater probe and placement of endoclips in total 3 clips were placed No bowel movement since then which is a very good sign Patient on a clear liquid diet Upper endoscopy showed gastritis and no annette blood Exam Vital Signs Temp Pulse Resp BP Pulse Ox O2 Del Method O2 Flow Rate 98.6 F 75 15 116/73 98 Nasal Cannula 3 11/29/24 12:35 11/29/24 12:35 11/29/24 12:35 11/29/24 12:35 11/29/24 12:35 11/29/24 08:46 11/28/24 18:59 Objective Labs 11/29/24 04:55 11/29/24 04:55 Labs: Laboratory Results - last 24 hr 11/27/24 11/28/24 11/29/24 06:45 15:29 04:55 WBC 8.9 D RBC 2.31 L Hgb 7.5 L Hct 21.5 L* MCV 93 MCH 32.5 MCHC 34.9 RDW Std Deviation 51.6 H Plt Count 97 L Neut % (Auto) 85 H Lymph % (Auto) 11 [place] % (Auto) 4 Eos % (Auto) 0 Baso % (Auto) 0 Neut # (Auto) 7.5 Lymph # (Auto) 0.9 L [place] # (Auto) 0.3 Eos # (Auto) 0.0 Baso # (Auto) 0.0 Immature Gran # (Auto) 0.07 H Absolute Nucleated RBC 0.00 Immature Gran % 1 H Nucleated RBC % 0 PT 12.4 H INR 1.1 APTT 27.0 Sodium 142 Potassium 3.3 L Chloride 109 H Carbon Dioxide 26.0 Anion Gap 7 BUN < 5 L Creatinine 0.6 Estim Creat Clear Calc 63.0 eGFR > 60 BUN/Creatinine Ratio 8 L Glucose 111 H Calculated Osmolality 281 Calcium 8.9 Corrected Calcium 9.8 Phosphorus 3.6 Magnesium 1.5 L Total Bilirubin 0.6 AST < 10 ALT < 7 L Alkaline Phosphatase 28 L Total Protein 4.2 L Albumin 2.9 L Globulin 1.3 L Albumin/Globulin Ratio 2.2 Crossmatch See Detail Impressions Impression: Site of bleeding is the polypectomy site in the cecum status post endoscopic intervention Repeat CBC Continue clear liquid diet Assessment & Plan A&P Narrative # Hematochezia Plan Clear liquid diet GoLytely prep Fiberoptic colonoscopy with possible biopsy possible therapeutic intervention under intravenous moderate sedation Consent obtained procedure has been tentatively scheduled for tomorrow Thank you for the opportunity to participate in the care of this patient Time Spent With Patient Time: Total time spent is greater than 50% in coordination of care (as documented) at patient's floor/unit and/or counseling patient:
[2024-11-29 17:28] LABS: Hematocrit 23.5 % (36.0-46.0)
[2024-11-29 17:33] LABS: Hemoglobin 8.2 g/dL (12.0-16.0)
--- NOTE | 2024-11-29 17:56 | PC.NURSE ---
Have called doctors multiple times patient would like dinner to be upgraded from a clear to a regular.Patient is very upset.
[2024-11-30] VITALS (8 sets, daily range): BP systolic 99–121; BP diastolic 56–81; PULSE 63–94; RESP 15–99; TEMP 36.1–36.6; O2SAT 97–98
[2024-11-30 06:03] LABS: Basophils # (Auto) 0.0 Thou/mm3 (0.0-0.2); Basophils % (Auto) 0 % (0-2.5); Eosinophils # (Auto) 0.1 Thou/mm3 (0.0-0.5); Eosinophils % (Auto) 2 % (0-10); Hematocrit 20.9 % (36.0-46.0); Immature Granulocytes Auto 0.02 Thou/mm3 (0.00-0.00); Lymphocytes # (Auto) 1.0 Thou/mm3 (1.0-4.8); Lymphocytes % (Auto) 23 % (10-50); Mean Corpuscular HGB Conc 34.9 g/dl (31.0-37.0); Mean Corpuscular Hemoglobin 32.9 pg (25.0-35.0); Mean Corpuscular Volume 94 fL (80-100); Monocytes # (Auto) 0.3 Thou/mm3 (0.0-0.8); Monocytes % (Auto) 6 % (0-12); Neutrophils # (Auto) 2.9 Thou/mm3 (1.8-7.7); Neutrophils % (Auto) 69 % (37-80); Nucleated Red Blood Cell # 0.00 Thou/mm3 (0.00-0.00); Nucleated Red Blood Cell % 0 /100 WBC (0); Platelet Count 105 Thou/mm3 (140-440); RDW Standard Deviation 50.8 fL (36.4-46.3); Red Blood Count 2.22 Miln/mm3 (4.00-5.20); White Blood Count 4.3 Thou/mm3 (3.6-11.0)
[2024-11-30 06:06] LABS: Hemoglobin 7.3 g/dL (12.0-16.0)
[2024-11-30 06:54] LABS: Alanine Aminotransferase 7 U/L (10-49); Albumin, Serum 2.9 gm/dL (3.4-4.8); Albumin/Globulin Ratio 2.1 (1.2-2.2); Alkaline Phosphatase 32 U/L (46-116); Anion Gap 7 (7-16); Aspartate Amino Transferase 16 U/L (0-34); BUN/Creatinine Ratio 10 Ratio (12-20); Bilirubin,Total 0.2 mg/dL (0.3-1.2); Blood Urea Nitrogen < 5 mg/dL (9-23); Calcium 9.1 mg/dL (8.3-10.6); Calcium (Corrected) 10.0 mg/dL (8.5-10.1); Carbon Dioxide 26.4 mMol/L (20.0-31.0); Chloride 112 mMol/L (98-107); Creatinine (Component) 0.5 mg/dL (0.6-1.3); Estimated Creatinine Clearance 75.6 mL/min (>60); Free T4 (Free Thyroxine) 0.89 ng/dL (0.89-1.76); Globulin 1.4 gm/dL (2.3-3.5); Glucose 92 mg/dL (74-106); Magnesium 1.9 mg/dL (1.6-2.6); Osmolality,Calculated 285 (275-295); Phosphorous 3.9 mg/dL (2.4-5.1); Potassium 4.0 mMol/L (3.4-5.1); Sodium 145 mMol/L (136-145); Total Protein 4.3 gm/dL (5.7-8.2); eGFR > 60 See Note
[2024-11-30 07:53] LABS: Path Review Blood Smear Sent to Pathologist
[2024-11-30 08:05] LABS: LDH (Lactate Dehydrogenase) 177 U/L (120-246)
[2024-11-30 08:12] LABS: Ferritin 155 ng/mL (7.3-270.7); Iron 17 mcg/dL (50-170); Percent Iron Saturation 9 % (20-55); Total Iron Binding Capacity 187 mcg/dL (250-425); Unsaturated Iron Binding 170 (225-295)
[2024-11-30] MEDS: NICOTINE PATCH 14 MG/24 HR PATCH.TD24 TOP (08:19)
[2024-11-30] MEDS: IRON SUCROSE CPLX INJ 20 MG/ML VIAL 5 ML 200 MG IVP (10:41)
[2024-11-30 13:13] LABS: Hematocrit 22.3 % (36.0-46.0)
[2024-11-30 13:16] LABS: Hemoglobin 7.7 g/dL (12.0-16.0)
--- NOTE | 2024-11-30 14:29 | ESPR_ITS ---
<Statement entered by Bhavana Lanier MD - 11/30/24 16:00> Patient was seen and examined at bedside. I agree on the assessment and plan on this note as documented by resident Marge West DO PGY1. 69-year-old female with past medical history as below admitted for lower GI bleed, patient underwent outpatient colonoscopy recently and continued to have bloody bowel movements post colonoscopy with polyp resection underwent EGD and colonoscopy by gastroenterology was found to have blood throughout the colon all the way to the cecum, epinephrine IV and endoclips were used to achieve hemostasis. Patient's hemoglobin this morning did downtrend, we ordered further anemia workup was found to have significant iron deficiency we will replete with IV iron. Patient will follow-up with gastroenterology today, if her hemoglobin is stable in a.m., patient will be discharged. Case discussed with attending Dr. Ana Rosa Lanier MD PGY-2 Documentation for date of: 11/30/24 Subjective Subjective Interval history: No acute overnight events. Patient seen and examined at bedside. Patient reports no bloody bowel movement due to not having a bowel movement recently. Patient feels overall well except for some crampy back pain and mild lower left abdominal pain. Denies chest pain, urinary symptoms, lightheadedness, dizziness or palpitations. Denies any recent history of bleeding problems, however a long time ago she bruised easily. Mother from leukemia. AM H&H 7.3/20.9, afternoon repeat 7.7/22.3. Pending a.m. H&H, if stable patient is able to be discharged tomorrow. Status post IV iron 200 mg x 1. Plan to give another IV iron 200 mg x 1 tomorrow. Platelets still low 97->105. Patient is tolerating regular diet and needs to follow-up with GI outpatient regarding constipation. Exam Vital Signs Temp Pulse Resp BP Pulse Ox O2 Del Method O2 Flow Rate 97.5 F 94 15 113/75 98 Room Air 3 11/30/24 12:00 11/30/24 12:00 11/30/24 12:00 11/30/24 12:00 11/30/24 12:00 11/30/24 12:00 11/28/24 18:59 Narrative Exam GENERAL: AOx3, no acute distress HEENT: NC/AT, mucous membranes moist, bilateral sclera anicteric CARDIOVASCULAR: regular rate and rhythm, S1/S2 present, no murmurs appreciated PULMONARY: clear to auscultation bilaterally, no rales/rhonchi/wheezes ABDOMINAL: soft, non-distended, no rebound/guarding, bowel sounds present +mild L abdominal tenderness on palpation EXTREMITIES: no peripheral edema SKIN: warm and dry, intact, no rashes NEURO: CN II-XII grossly intact, no focal deficits, alert, following commands Objective Labs 11/30/24 12:42 11/30/24 05:10 Labs: Laboratory Results - last 24 hr 11/27/24 11/29/24 11/29/24 06:45 15:10 15:11 WBC RBC Hgb 8.2 L Hct 23.5 L MCV MCH MCHC RDW Std Deviation Plt Count Neut % (Auto) Lymph % (Auto) [place] % (Auto) Eos % (Auto) Baso % (Auto) Neut # (Auto) Lymph # (Auto) [place] # (Auto) Eos # (Auto) Baso # (Auto) Immature Gran # (Auto) Absolute Nucleated RBC Immature Gran % Nucleated RBC % Smear Path Review Sodium Potassium Chloride Carbon Dioxide Anion Gap BUN Creatinine Estim Creat Clear Calc eGFR BUN/Creatinine Ratio Glucose Calculated Osmolality Calcium Corrected Calcium Phosphorus Magnesium Iron 17 L TIBC 187 L Iron Saturation 9 L Unsat Iron Binding 170 L Ferritin 155 Total Bilirubin AST ALT Alkaline Phosphatase Lactate Dehydrogenase Total Protein Albumin Globulin Albumin/Globulin Ratio Free T4 Crossmatch See Detail 11/30/24 11/30/24 05:10 12:42 WBC 4.3 D RBC 2.22 L Hgb 7.3 L 7.7 L Hct 20.9 L* 22.3 L MCV 94 MCH 32.9 MCHC 34.9 RDW Std Deviation 50.8 H Plt Count 105 L Neut % (Auto) 69 Lymph % (Auto) 23 [place] % (Auto) 6 Eos % (Auto) 2 Baso % (Auto) 0 Neut # (Auto) 2.9 Lymph # (Auto) 1.0 [place] # (Auto) 0.3 Eos # (Auto) 0.1 Baso # (Auto) 0.0 Immature Gran # (Auto) 0.02 H Absolute Nucleated RBC 0.00 Immature Gran % 1 H Nucleated RBC % 0 Smear Path Review Sent to Pathologist Sodium 145 Potassium 4.0 D Chloride 112 H Carbon Dioxide 26.4 Anion Gap 7 BUN < 5 L Creatinine 0.5 L Estim Creat Clear Calc 75.6 eGFR > 60 BUN/Creatinine Ratio 10 L Glucose 92 Calculated Osmolality 285 Calcium 9.1 Corrected Calcium 10.0 Phosphorus 3.9 Magnesium 1.9 Iron TIBC Iron Saturation Unsat Iron Binding Ferritin Total Bilirubin 0.2 L AST 16 ALT 7 L Alkaline Phosphatase 32 L Lactate Dehydrogenase 177 Total Protein 4.3 L Albumin 2.9 L Globulin 1.4 L Albumin/Globulin Ratio 2.1 Free T4 0.89 Crossmatch Quality Measures Quality Measures none Advance care planning discussed with:: patient Assessment & Plan Assessment Current Active Medications: Generic Name Dose Route Start Last Admin Trade Name Freq PRN Reason Stop Dose Admin Acetaminophen 650 mg 11/27/24 12:30 11/29/24 04:33 Acetaminophen 325 Mg Tablet PO 12/27/24 12:29 650 mg Q6H PRN Administration Fever >100.4 or pain Nicotine 14 mg 11/28/24 09:00 11/30/24 08:19 Nicotine Patch 14 Mg/24 Hr Patch.Td24 TOP 12/28/24 08:59 14 mg QDAY IRASEMA Administration Ondansetron HCl 4 mg 11/27/24 12:30 11/28/24 20:03 Ondansetron Inj 2 Mg/Ml Inj 2 Ml IVP 12/27/24 12:29 4 mg Q6H PRN Administration NAUSEA OR VOMITING Protocol Pantoprazole Sodium 40 mg 11/27/24 12:40 11/30/24 08:19 Pantoprazole Inj 40 Mg Vial IVP 12/27/24 12:39 40 mg BID IRASEMA Administration Plan Gabo Germain is a 69F pmhx significant for HTN and hx of R breast cancer s/p chemo and mastectomy (2007) presented to [facility] ED on 11/27 for bleeding per rectum, admitted for GIB management and acute blood loss anemia. #Acute Blood loss anemia #GI Bleed, lower #Thrombocytopenia Patient reports new bleeding per rectum initially for 2 days after colonoscopy on 11/20. Bleeding stopped subsequently, however day prior to admission, reports 1 large bloody bowel movement. Platelets 247, however decreased to 123 11/20 colonoscopy results showed non-thrombosed external hemorrhoids, non- bleeding internal hemorrhoids, diverticulosis without evidence of bleeding, and one medium and two large polyps that were resected. Polyp pathology: Ascending polyp tubular adenoma, hepatic flexure polyp tubulovillous adenoma NM GI bleed study showed abnormal gastric activity and increased isotope accumulation in the right abdomen in the region of the right colon as well as the left upper abdomen EGD performed 11/28 showed gastritis. Colonoscopy performed 11/28 showed hemorrhoids on perianal exam, blood throughout the colon and all the way up to cecum, and visible blood vessel at site of polypectomy oozing blood in the cecum. Epinephrine, utero, endoclips were used to achieve hemostasis s/p 2 prbc (11/27 and 11/28) Plan: - GI consulted, recs appreciated - IV pantoprazole 40 mg BID - Encourage oral hydration - F/u outpatient with GI - IV iron 200 mg x1, plan to give another IV iron 200 mg IV tomorrow - Consider project inspector follow up outpatient #HTN Patient reports that she has a history of hypertension and does not take her BP at home. Takes nifedipine 90 mg QD at home. BP in ED 92/70. Plan: - Hold home BP meds iso soft BP - Resume as appropriate #L4 vertebral body lesion #Concern for metastasis iso #Hx of R breast cancer Patient has had a history of right breast cancer, treated with chemotherapy and mastectomy (2007) as well as reconstruction (2008). 05/05/24 CTAP showed 16mm abnormal sclerotic focus L4 11/28/24 CTAP showed 15 mm sclerotic focus L4 vertebral body differential including osteoblastic metastasis Plan: - Patient was notified regarding spinal lesion - Recommend outpatient oncology workup for further management #Liver cyst, 8 mm #Cholelithiasis #Heavy abdominal aortic calcification #Prominent osteopenia CTAP findings shows 8 mm liver cyst, cholelithiasis, gallbladder wall does appear thickened, heavy abdominal aortic calcification no aneurysmal dilatation, prominent osteopenia Plan: - Patient was notified regarding CTAP findings - Recommend outpatient workup for further management #Hypokalemia Patient had potassium of 3.3 on 11/29. Plan: - Monitor daily labs, replete potassium as needed #Hypomagnesemia Patient had magnesium of 1.5 on 11/29. Plan: - Monitor daily labs, replete magnesium as needed Hospital management: Lines: peripheral IV Diet: Regular Bowel: None GI prophylaxis: IV pantoprazole 40 mg BID DVT prophylaxis: SCDs Disposition: med tele for management of GIB CODE STATUS: DNR Plan of care discussed with attending Dr. Holden and PGY-2 Dr. Lanier. Marge West, DO Internal Medicine PGY-1 Attending Provider Attestation/Addendum I attest that I was physically present for the evaluation, physical examination, lab and imaging review of the patient with the residents. I discussed the case with the residents and agree with the findings and plans of care as documented above. At bedside today, patient states she is feeling well and denies any new complaints. She still has some mild pain around her left lower quadrant but improved compared to yesterday. Hemoglobin noted to have decreased slightly from 8.2 to 7.3 today. Noted to have low iron, started on iron infusion. We will continue with IV Protonix. Patient's diet has been advanced to regular diet as recommended by GI. We will continue to monitor closely for hemoglobin level and discussed with GI if hemoglobin continues to be downtrending. Ana Rosa Holden MD
--- NOTE | 2024-11-30 17:26 | ESPR_ITS ---
Documentation for date of: 11/30/24 Subjective Subjective Interval history: Patient evaluated Hemoglobin hematocrit 7.7 and 22.3 although trended downward this morning at 7.3 and 20.9 No signs of any active bleeding Exam Vital Signs Temp Pulse Resp BP Pulse Ox O2 Del Method O2 Flow Rate 97.5 F 75 16 121/75 98 Room Air 3 11/30/24 15:15 11/30/24 15:15 11/30/24 15:15 11/30/24 15:15 11/30/24 15:15 11/30/24 15:15 11/28/24 18:59 Objective Labs 11/30/24 12:42 11/30/24 05:10 Labs: Laboratory Results - last 24 hr 11/27/24 11/29/24 11/29/24 06:45 15:10 15:11 WBC RBC Hgb 8.2 L Hct 23.5 L MCV MCH MCHC RDW Std Deviation Plt Count Neut % (Auto) Lymph % (Auto) [place] % (Auto) Eos % (Auto) Baso % (Auto) Neut # (Auto) Lymph # (Auto) [place] # (Auto) Eos # (Auto) Baso # (Auto) Immature Gran # (Auto) Absolute Nucleated RBC Immature Gran % Nucleated RBC % Smear Path Review Sodium Potassium Chloride Carbon Dioxide Anion Gap BUN Creatinine Estim Creat Clear Calc eGFR BUN/Creatinine Ratio Glucose Calculated Osmolality Calcium Corrected Calcium Phosphorus Magnesium Iron 17 L TIBC 187 L Iron Saturation 9 L Unsat Iron Binding 170 L Ferritin 155 Total Bilirubin AST ALT Alkaline Phosphatase Lactate Dehydrogenase Total Protein Albumin Globulin Albumin/Globulin Ratio Free T4 Crossmatch See Detail 11/30/24 11/30/24 05:10 12:42 WBC 4.3 D RBC 2.22 L Hgb 7.3 L 7.7 L Hct 20.9 L* 22.3 L MCV 94 MCH 32.9 MCHC 34.9 RDW Std Deviation 50.8 H Plt Count 105 L Neut % (Auto) 69 Lymph % (Auto) 23 [place] % (Auto) 6 Eos % (Auto) 2 Baso % (Auto) 0 Neut # (Auto) 2.9 Lymph # (Auto) 1.0 [place] # (Auto) 0.3 Eos # (Auto) 0.1 Baso # (Auto) 0.0 Immature Gran # (Auto) 0.02 H Absolute Nucleated RBC 0.00 Immature Gran % 1 H Nucleated RBC % 0 Smear Path Review Sent to Pathologist Sodium 145 Potassium 4.0 D Chloride 112 H Carbon Dioxide 26.4 Anion Gap 7 BUN < 5 L Creatinine 0.5 L Estim Creat Clear Calc 75.6 eGFR > 60 BUN/Creatinine Ratio 10 L Glucose 92 Calculated Osmolality 285 Calcium 9.1 Corrected Calcium 10.0 Phosphorus 3.9 Magnesium 1.9 Iron TIBC Iron Saturation Unsat Iron Binding Ferritin Total Bilirubin 0.2 L AST 16 ALT 7 L Alkaline Phosphatase 32 L Lactate Dehydrogenase 177 Total Protein 4.3 L Albumin 2.9 L Globulin 1.4 L Albumin/Globulin Ratio 2.1 Free T4 0.89 Crossmatch Impressions Impression: Bleeding from the previous site of polypectomy requiring endoscopic intervention in the ascending colon Advance diet if the hemoglobin hematocrit stable discharge patient home in a.m. Assessment & Plan A&P Narrative # Hematochezia Plan Clear liquid diet GoLytely prep Fiberoptic colonoscopy with possible biopsy possible therapeutic intervention under intravenous moderate sedation Consent obtained procedure has been tentatively scheduled for tomorrow Thank you for the opportunity to participate in the care of this patient Time Spent With Patient Time: Total time spent is greater than 50% in coordination of care (as documented) at patient's floor/unit and/or counseling patient:
[2024-11-30 19:11] LABS: Folate 19.08 ng/mL (>5.38); Vitamin B12 565 pg/mL (211-911)
[2024-11-30] MEDS: POLYETHYLENE GLYCOL 17 GM PACKET PO (20:32)
[2024-12-01] VITALS: BP 110/67; PULSE 62; PULSE 72; RESP 16; TEMP 36.1; O2SAT 98
[2024-12-01 04:00] VITALS: BP 110/71; PULSE 60; PULSE 68; RESP 16; TEMP 36.4; O2SAT 96
[2024-12-01 06:04] LABS: Basophils # (Auto) 0.0 Thou/mm3 (0.0-0.2); Basophils % (Auto) 1 % (0-2.5); Eosinophils # (Auto) 0.1 Thou/mm3 (0.0-0.5); Eosinophils % (Auto) 3 % (0-10); Hematocrit 20.7 % (36.0-46.0); Immature Granulocytes Auto 0.03 Thou/mm3 (0.00-0.00); Lymphocytes # (Auto) 1.0 Thou/mm3 (1.0-4.8); Lymphocytes % (Auto) 24 % (10-50); Mean Corpuscular HGB Conc 35.3 g/dl (31.0-37.0); Mean Corpuscular Hemoglobin 33.0 pg (25.0-35.0); Mean Corpuscular Volume 94 fL (80-100); Monocytes # (Auto) 0.3 Thou/mm3 (0.0-0.8); Monocytes % (Auto) 7 % (0-12); Neutrophils # (Auto) 2.7 Thou/mm3 (1.8-7.7); Neutrophils % (Auto) 65 % (37-80); Nucleated Red Blood Cell # 0.00 Thou/mm3 (0.00-0.00); Nucleated Red Blood Cell % 0 /100 WBC (0); Platelet Count 125 Thou/mm3 (140-440); RDW Standard Deviation 50.6 fL (36.4-46.3); Red Blood Count 2.21 Miln/mm3 (4.00-5.20); White Blood Count 4.2 Thou/mm3 (3.6-11.0)
[2024-12-01 06:06] LABS: Hemoglobin 7.3 g/dL (12.0-16.0)
[2024-12-01 06:44] LABS: Albumin, Serum 3.0 gm/dL (3.4-4.8); Anion Gap 8 (7-16); BUN/Creatinine Ratio 12 Ratio (12-20); Blood Urea Nitrogen 6 mg/dL (9-23); Calcium 9.4 mg/dL (8.3-10.6); Calcium (Corrected) 10.2 mg/dL (8.5-10.1); Carbon Dioxide 26.8 mMol/L (20.0-31.0); Chloride 109 mMol/L (98-107); Creatinine (Component) 0.5 mg/dL (0.6-1.3); Estimated Creatinine Clearance 75.6 mL/min (>60); Glucose 93 mg/dL (74-106); Magnesium 1.8 mg/dL (1.6-2.6); Osmolality,Calculated 284 (275-295); Phosphorous 4.4 mg/dL (2.4-5.1); Potassium 3.7 mMol/L (3.4-5.1); Sodium 144 mMol/L (136-145); eGFR > 60 See Note
[2024-12-01 08:00] VITALS: BP 126/68; PULSE 66; PULSE 82; RESP 17; TEMP 36.6; O2SAT 95
[2024-12-01] MEDS: POLYETHYLENE GLYCOL 17 GM PACKET PO (08:24)
[2024-12-01] MEDS: NICOTINE PATCH 14 MG/24 HR PATCH.TD24 TOP (08:24)
[2024-12-01] MEDS: IRON SUCROSE CPLX INJ 20 MG/ML VIAL 5 ML 200 MG IVP (10:09)
--- NOTE | 2024-12-01 11:36 | PC.NURSE ---
Patient requests to speak to before discharge. MD notified will see patient at bedside before discharge.
[2024-12-01 12:00] VITALS: BP 123/79; PULSE 73; PULSE 88; RESP 19; TEMP 36.3; O2SAT 99
--- NOTE | 2024-12-01 14:05 | ESDS_ITS ---
<Statement entered by Bhavana Lanier MD - 12/02/24 12:11> Patient was seen and examined by me personally. I have reviewed the below documentation by the team resident and agree with its findings. Discharge plan was discussed with the attending, Dr. Ana Rosa Holden MD 69-year-old female with past medical history of hypertension and history of breast cancer status post chemo and mastectomy admitted to [facility] for GI bleed workup, patient underwent colonoscopy outpatient had polypectomy, was transfused 2 units PRBC underwent EGD and colonoscopy colonoscopy significant for blood throughout the colon all the way up to cecum with visible blood vessel at site of polypectomy oozing blood in cecum was cauterized by gastroenterology and endoclips were placed. Patient's H&H stable after further anemia workup revealed iron deficiency anemia patient was given IV iron for the hospital stay, further plan is to discharge patient home follow-up with primary care physician in 1 to 2 weeks and repeat CBC. Patient stable for discharge responded well to hospital treatment. Bhavana Lanier MD Internal Medicine, PGY-2 <Statement entered by Ana Rosa Holden MD - 12/02/24 09:32> I attest that I was physically present for the evaluation, physical examination, lab and imaging review of the patient with the residents. I discussed the case with the residents and agree with the findings and plans of care as documented below. Ana Rosa Holden MD Planned Discharge Date 12/01/24 DS: Providers Provider Date of admission: 11/27/24 12:30 Primary care physician: Danny Belle MD Admitting Provider: Ana Rosa Holden MD Attending Provider on Admission: Ana Rosa Holden MD Consults: 11/27/24 11:39 Consult to Gastroenterology Stat Comment: Consulting Provider: Butch Cadena Consult to General Surgery Stat Comment: Consulting Provider: Olaf Cardenas Attending Provider on DC: Ana Rosa Holden MD Discharging Provider: Ana Rosa Holden MD DS: Diagnosis Problem List Completed Was Problem List Reviewed/Reconciled?: Yes Hospital Course Hospital Course Hospital course: Summary: Gabo Germain is a 69F pmhx significant for HTN and hx of R breast cancer s/p chemo and mastectomy (2007) presented to [facility] ED on 8/21 for bleeding per rectum, admitted for GIB management and acute blood loss anemia. Patient reports new bleeding per rectum initially for 2 days after colonoscopy on 11/20. Bleeding stopped subsequently however day prior to admission reported 1 large bloody bowel movement. 11/20 colonoscopy results showed nonthrombosed external hemorrhoids, nonbleeding internal hemorrhoids, diverticulosis without evidence of bleeding and 1 medium and 2 large polyps that were resected, pathology showing tubular adenoma and tubulovillous adenoma. Patient was treated with 2 units of PRBC and 2 IV iron supplements. GI was consulted and nuclear medicine scan showed bleeding in the GI tract as below. EGD showed gastritis and colonoscopy showed hemorrhoids on perianal exam, blood throughout the colon and all the way up to the cecum and visible blood vessel at site of polypectomy oozing blood in the cecum, hemostasis was achieved with epinephrine cauterization and endoclips. Of note, patient's platelets were noted to be low with no history of thrombocytopenia. Incidental findings of L4 vertebral body lesion concerning for metastasis, liver cyst, asymptomatic cholelithiasis, heavy abdominal aortic calcification prominent osteopenia found on CTAP. Patient was notified regarding CTAP findings and recommend outpatient PCP and oncology workup. During hospitalization, home blood pressure medication was held due to soft blood pressures. On discharge, patient's hemoglobin stable with no active bleeding, platelets stable, vitals and labs reviewed to be stable and patient is feeling ready to be discharged. Imaging: CTAP findings shows 8 mm liver cyst, cholelithiasis, gallbladder wall does appear thickened, heavy abdominal aortic calcification no aneurysmal dilatation, prominent osteopenia, 15 mm sclerotic focus L4 vertebral body differential including osteoblastic metastasis NM GI bleed study showed abnormal gastric activity and increased isotope accumulation in the right abdomen in the region of the right colon as well as the left upper abdomen Discharge Recommendations: - Please take all medications as prescribed - Stop Smoking, continue Nicotine patches as needed - Hold Nifedipine, follow up with PCP in 1-2 weeks before resuming - Please obtain CBC in one week - Please follow up with your PCP within one week of discharge - Please follow up with Dr. Cardenas within 1-2 weeks of discharge - If your symptoms worsen, please seek immediate medical attention and return to your nearest emergency room. - If you do not have a PCP, you may follow up at the [facility] at [address] [place] [address] [address], [facility] [address], Hospital Diagnoses: #Acute Blood loss anemia #GI Bleed, lower #Thrombocytopenia #HTN #L4 vertebral body lesion #Concern for metastasis iso #Hx of R breast cancer #Liver cyst, 8 mm #Cholelithiasis #Heavy abdominal aortic calcification #Prominent osteopenia #Hypokalemia, resolved #Hypomagnesemia, resolved Marge West, DO Internal Medicine, PGY-1 Status at Discharge Cognitive/behavioral status at discharge: Stable Functional status at discharge: independent ambulation Overall status at discharge: patient is progressing back to baseline Time Spent with Patient Time attestation: Total time spent providing and/or coordinating discharge services:34 min Time spent: Greater than 30 minutes Exam Vital Signs Temp Pulse Resp BP Pulse Ox O2 Del Method O2 Flow Rate 97.3 F 88 19 123/79 99 Room Air 3 12/01/24 12:00 12/01/24 12:00 12/01/24 12:00 12/01/24 12:00 12/01/24 12:00 12/01/24 12:00 11/28/24 18:59 Narrative Exam GENERAL: AOx3, no acute distress HEENT: NC/AT, mucous membranes moist, bilateral sclera anicteric CARDIOVASCULAR: regular rate and rhythm, S1/S2 present, no murmurs appreciated PULMONARY: clear to auscultation bilaterally, no rales/rhonchi/wheezes ABDOMINAL: soft, non-distended, no rebound/guarding, bowel sounds present +mild L abdominal tenderness on palpation EXTREMITIES: no peripheral edema SKIN: warm and dry, intact, no rashes NEURO: CN II-XII grossly intact, no focal deficits, alert, following commands Discharge Plan Plan Patient Disposition: HOME (Self Care) Patient condition on transfer: Stable Care Plan Goals: - Stop Smoking, continue Nicotine patches as needed - Hold Nifedipine, follow up with PCP in 1-2 weeks before resuming - Please obtain CBC in one week - Return to ED if symptoms worsen. - Follow up with Dr Cardenas outpatient. Prescriptions/Referrals Prescriptions/Med Rec: New nicotine 14 mg/24 hr Patch 24 Hour 14 mg top QDAY 30 Days Qty: 28 0RF Benefiber (inulin-corn fiber) 2 gram tablet,chewable 2 tab PO QDAY Qty: 14 0RF magnesium hydroxide [Milk of Magnesia] 400 mg/5 mL suspension 15 ml PO QDAY PRN (Reason: constipation) Qty: 355 0RF Held nifedipine 90 mg tablet extended release 90 mg PO DAILY Hold Instructions: Resume on 12/08/24. Follow up with PCP before resuming Patient Comments: TAKE 1 TABLET BY MOUTH EVERY DAY ON EMPTY STOMACH Referrals: Olaf Cardenas MD [Physician] - Danny Belle MD [Primary Care Provider] - Outpatient Orders (i.e. Home Health, Labs, Imaging): CBC (Routine) Timeframe: 1 Week Location: Determined by Patient Ordered By: Bhavana Lanier Patient/Caregiver Discharge Instructions Print Language: Kyrgyz Stand Alone Forms: [employer] Info., Patient Portal Info Letter Discharge Order Discharge Orders: Discharge (Routine); Ordered 12/01/24 Ordered By: Bhavana Lanier Quality Discharge Quality Measures VTE prophylaxis
--- NOTE | 2024-12-01 20:48 | PD.IMPROG ---
Documentation for date of: 12/01/24 Subjective Subjective Interval history: Late entry for the note hemoglobin hematocrit 7.3 and 20.7 Case discussed in detail with the internal medicine team Okay to discharge patient home to be followed by the PCP Exam Vital Signs Temp Pulse Resp BP Pulse Ox O2 Del Method O2 Flow Rate 97.3 F 88 19 123/79 99 Room Air 3 12/01/24 12:00 12/01/24 12:00 12/01/24 12:00 12/01/24 12:00 12/01/24 12:00 12/01/24 12:00 11/28/24 18:59 Objective Labs 12/01/24 05:48 12/01/24 05:48 Labs: Laboratory Results - last 24 hr 12/01/24 05:48 WBC 4.2 RBC 2.21 L Hgb 7.3 L Hct 20.7 L* MCV 94 MCH 33.0 MCHC 35.3 RDW Std Deviation 50.6 H Plt Count 125 L Neut % (Auto) 65 Lymph % (Auto) 24 [place] % (Auto) 7 Eos % (Auto) 3 Baso % (Auto) 1 Neut # (Auto) 2.7 Lymph # (Auto) 1.0 [place] # (Auto) 0.3 Eos # (Auto) 0.1 Baso # (Auto) 0.0 Immature Gran # (Auto) 0.03 H Absolute Nucleated RBC 0.00 Immature Gran % 1 H Nucleated RBC % 0 Sodium 144 Potassium 3.7 Chloride 109 H Carbon Dioxide 26.8 Anion Gap 8 BUN 6 L Creatinine 0.5 L Estim Creat Clear Calc 75.6 eGFR > 60 BUN/Creatinine Ratio 12 Glucose 93 Calculated Osmolality 284 Calcium 9.4 Corrected Calcium 10.2 H Phosphorus 4.4 Magnesium 1.8 Albumin 3.0 L Blood Type O Negative Antibody Screen NEGATIVE Blood Bank Wristband ID Yes Impressions Impression: Right colonic bleed at the site of polypectomy requiring endoscopic intervention with complete hemostasis Okay to discharge to be followed by PCP Assessment & Plan A&P Narrative # Hematochezia Plan Clear liquid diet GoLytely prep Fiberoptic colonoscopy with possible biopsy possible therapeutic intervention under intravenous moderate sedation Consent obtained procedure has been tentatively scheduled for tomorrow Thank you for the opportunity to participate in the care of this patient Time Spent With Patient Time: Total time spent is greater than 50% in coordination of care (as documented) at patient's floor/unit and/or counseling patient:
== END 2024-12-01 13:45 | disposition home or self-care (01) | DRG 378 ==
LOC: SERX 07:58 → SERHOLD 13:17 → S3SX 20:50
PROVIDERS: Specialist; Admitting Provider Student in an Organized Health Care Education/Training Program; Emergency Provider Emergency Medicine; PCP Family Medicine; Visit Provider Student in an Organized Health Care Education/Training Program
PROC: 0DJD8ZZ Inspection of Lower Intestinal Tract, Via Natural or Artificial Opening Endoscopic (ICD-10-PCS; CPT 45378; principal; 2024-11-28 17:00)
PROC: 0DJ08ZZ Inspection of Upper Intestinal Tract, Via Natural or Artificial Opening Endoscopic (ICD-10-PCS; CPT 43239; 2024-11-28 17:00)
DX: K29.71 Gastritis, unspecified, with bleeding (principal); D62 Acute posthemorrhagic anemia; I10 Essential (primary) hypertension; K59.00 Constipation, unspecified; K21.9 Gastro-esophageal reflux disease without esophagitis; F17.210 Nicotine dependence, cigarettes, uncomplicated; Z90.11 Acquired absence of right breast and nipple; D69.6 Thrombocytopenia, unspecified; E87.6 Hypokalemia; I70.0 Atherosclerosis of aorta; K63.5 Polyp of colon; K57.31 Diverticulosis of large intestine without perforation or abscess with bleeding; K64.4 Residual hemorrhoidal skin tags; K76.89 Other specified diseases of liver; K80.20 Calculus of gallbladder without cholecystitis without obstruction; M85.80 Other specified disorders of bone density and structure, unspecified site; Z63.4 Disappearance and death of family member; Z66 Do not resuscitate; Z79.899 Other long term (current) drug therapy; Z85.3 Personal history of malignant neoplasm of breast; Z92.21 Personal history of antineoplastic chemotherapy; Z87.442 Personal history of urinary calculi; Z88.0 Allergy status to penicillin; Z88.5 Allergy status to narcotic agent; E83.42 Hypomagnesemia
CPT/HCPCS: 36415; 74177; 78278; 80053; 80069; 82607; 82728; 82746; 83540; 83550; 83615; 83690; 83735; 84100; 84439; 84443; 85014; 85018; 85025; 85046; 85610; 85730; 86850; 86900; 86901; 86923; 93005; 93225; 99284; A4217; A4641; A4649; A9560; A9577; J0168; J1200; J1611; J1756; J2250; J2405; J2470; J3010; J3475; J7030; J7999; P9016; Q9967; A9270

== ENCOUNTER 2024-12-23 06:40 | Day surgery (SDC) | payer MEDICARE, BC, SELFPAY ==
[2024-12-19 12:10] VITALS: BMI 18.4
[2024-12-19 13:10] LABS: Basophils # (Auto) 0.0 Thou/mm3 (0.0-0.2); Basophils % (Auto) 0 % (0-2.5); Eosinophils # (Auto) 0.0 Thou/mm3 (0.0-0.5); Eosinophils % (Auto) 0 % (0-10); Hematocrit 31.5 % (36.0-46.0); Hemoglobin 10.3 g/dL (12.0-16.0); Immature Granulocytes Auto 0.02 Thou/mm3 (0.00-0.00); Lymphocytes # (Auto) 1.3 Thou/mm3 (1.0-4.8); Lymphocytes % (Auto) 28 % (10-50); Mean Corpuscular HGB Conc 32.7 g/dl (31.0-37.0); Mean Corpuscular Hemoglobin 33.0 pg (25.0-35.0); Mean Corpuscular Volume 101 fL (80-100); Monocytes # (Auto) 0.2 Thou/mm3 (0.0-0.8); Monocytes % (Auto) 4 % (0-12); Neutrophils # (Auto) 3.0 Thou/mm3 (1.8-7.7); Neutrophils % (Auto) 67 % (37-80); Nucleated Red Blood Cell # 0.00 Thou/mm3 (0.00-0.00); Nucleated Red Blood Cell % 0 /100 WBC (0); Platelet Count 166 Thou/mm3 (140-440); RDW Standard Deviation 58.8 fL (36.4-46.3); Red Blood Count 3.12 Miln/mm3 (4.00-5.20); White Blood Count 4.5 Thou/mm3 (3.6-11.0)
[2024-12-19 13:22] LABS: Alanine Aminotransferase 11 U/L (10-49); Albumin, Serum 3.9 gm/dL (3.4-4.8); Albumin/Globulin Ratio 1.9 (1.2-2.2); Alkaline Phosphatase 48 U/L (46-116); Anion Gap 6 (7-16); Aspartate Amino Transferase 13 U/L (0-34); BUN/Creatinine Ratio 14 Ratio (12-20); Bilirubin,Total 0.4 mg/dL (0.3-1.2); Blood Urea Nitrogen 7 mg/dL (9-23); Calcium 9.3 mg/dL (8.3-10.6); Calcium (Corrected) 9.4 mg/dL (8.5-10.1); Carbon Dioxide 28.8 mMol/L (20.0-31.0); Chloride 109 mMol/L (98-107); Creatinine (Component) 0.5 mg/dL (0.6-1.3); Estimated Creatinine Clearance 79.1 mL/min (>60); Globulin 2.1 gm/dL (2.3-3.5); Glucose 87 mg/dL (74-106); Osmolality,Calculated 283 (275-295); Potassium 4.0 mMol/L (3.4-5.1); Sodium 144 mMol/L (136-145); Total Protein 6.0 gm/dL (5.7-8.2); eGFR > 60 See Note
[2024-12-19 13:24] LABS: INR 1.0 (0.9-1.3); Prothrombin Time 11.3 Seconds (9.0-12.2)
[2024-12-23] VITALS (9 sets, daily range): BP systolic 119–154; BP diastolic 78–90; PULSE 61–78; RESP 11–20; TEMP 37–37.2; O2SAT 95–100; BMI 17.0
--- NOTE | 2024-12-23 07:35 | CHAP ---
Visited with patient giving encouragement and prayer.
[2024-12-23] MEDS: RINGERS LACTATED 1000 ML 1,000 ML 20 ML IV (07:49)
--- NOTE | 2024-12-23 10:06 | ESOP_ITS ---
Date of Procedure 12/23/24 Pre Op Diagnosis Symptomatic cholelithiasis Post Op Diagnosis Cholelithiasis with cholecystitis Procedure Laparoscopic cholecystectomy Findings Moderately distended gallbladder with gallstones and chronic cholecystitis Procedure Description Patient was brought into the operating room in supine position. After adm inistration of general endotracheal anesthesia abdomen was prepped and draped in standard surgical manner. A Veress needle was inserted through the umbilicus and pneumoperitoneum was obtained up to 15 mmHg. The Veress needle was then removed, a 5 mm infraumbilical incision was made and the 5mm trocar was inserted. Laparoscopic camera was placed. Under direct visualization a laparoscopic camera a 10 mm trocar was placed in subxiphoid and two 5 mm trocars placed in right upper quadrant. Anterior surface of the liver was smooth without any nodules or any lesions. The gallbladder was identified and was noted to be moderately distended with gallstones and chronic cholecystitis. It was retracted cephalad and laterally. Dissection started near the infundibulum of gallbladder where cystic duct and gallbladder junction clearly identified. The cystic duct was circumferentially dissected off the peritoneum and surrounding inflammatory tissue. The critical view of safety was clearly dem onstrated. Cystic duct was then divided between 2 endoclips proximally and one distally. The cystic artery was similarly dissected and divided. The gallbladder was then from the liver bed using electrocautery. The gallbladder was then placed inside an Endo Catch and removed from the abdomen utilizing subxiphoid trocar site. The area was copiously and thoroughly washed and irrigated, all the fluid was suctioned and the suction fluid returned clear. Hemostasis achieved using electrocautery. Endoclips noted be in place and intact without any bleeding or any leakage. Hemostasis was adequate and satisfactory. The subxiphoid trocar sites fascial defect was closed with 0 Vicryl. Instruments and trocars removed, pneumoperitoneum was evacuated and the incisions closed with 4-0 Monocryl in subcuticular fashion. Instrument needle and sponge counts were all reported to be correct X2. Patient tolerated the procedure well, was extubated, breathing spontaneously and without difficulty and was transferred to postanesthesia care in stable condition. Anesthesia GETA and local Pathology / specimen Other (Gallbladder and contents) Estimated Blood Loss 10 Condition Stable Disposition PACU Surgeon Olaf Cardenas MD Surgical Staff Operation Date: 12/23/24 09:00 Case Staff CHANGE MANAGEMENT FACILITATOR: [place],Kalen B director mobile media solutions: Vivian Roche
--- NOTE | 2024-12-23 10:34 | SUR.PHASEI ---
1005: Pt received in [facility] via gurney. Report from Kevin CHIN and Edmar RAMIREZ. Oral airway in place. Resp even, unlabored. VS stable. Surgical sites x4 to abdomen secured with dermabond. Sites dry, clean, intact. 1007: Oral airway dc'd. Resp even, unlabored. Denies pain. 1030: Pt more awake, alert. Resp even, unlabored. VS stable. Surgical sites remain dry, clean, intact with no swelling, discoloration. Denies pain.
--- NOTE | 2024-12-23 12:29 | SUR.PHASEII ---
1100: Pt more awake, alert. Resp even, unlabored. VS stable. Surgical sites remain dry, clean, intact with no swelling, discoloration. Denies pain. Sitting up tolerating po fluids with no difficulty swallowing and no n/v. 1135: Pt fully awake, oriented x3. VS stable. Surgical sites unchanged. Pt assisted to restroom. Ambulation steady. Pt and son stated understanding of discharge instructions. 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 Pt discharged from [facility] in stable condition.
== END 2024-12-23 11:35 | disposition home or self-care (01) ==
PROVIDERS: PCP Family Medicine; Referring Provider Surgery; Visit Provider Surgery
PROC: 0FT44ZZ Resection of Gallbladder, Percutaneous Endoscopic Approach (ICD-10-PCS; CPT 47562; principal; 2024-12-23 08:45)
DX: K80.10 Calculus of gallbladder with chronic cholecystitis without obstruction (principal); I10 Essential (primary) hypertension
CPT/HCPCS: 47562; 36415; 80053; 85025; 85610; A4217; A4649; J0694; J1100; J1885; J2250; J2405; J2704; J3010; J3490; J7120

== ENCOUNTER → 2025-01-21 | Outpatient (CLI) | payer MEDICARE, BC, SELFPAY ==
--- NOTE | 2025-01-21 12:30 | XR_ITS ---
EXAMINATION: Nuclear medicine bone scan whole body Date and time: January 16, 2025, 1343 hours INDICATIONS: Diagnosis malignant neoplasm of unspecified site of right female breast, mastectomy 2007, status post chemotherapy 2008, staging TECHNIQUE AND FINDINGS: Intravenous administration 23.2 mCi 99 M technetium MDP compound Whole body anterior posterior images as well as: Anterior neck chest pelvis as well as posterior neck chest pelvis Minor asymmetric uptake about the knees and at the injection site right arm No pattern diagnostic for osseous metastatic disease IMPRESSION: No pattern diagnostic for osseous metastatic disease
== END | disposition home or self-care (01) ==
LOC: SNUC 08:26
PROVIDERS: PCP Family Medicine; Referring Provider Specialist; Visit Provider Specialist
DX: C50.911 Malignant neoplasm of unspecified site of right female breast (principal)
CPT/HCPCS: 78306; A9503

== ENCOUNTER → 2025-02-03 | Outpatient (CLI) | payer MEDICARE, BC, SELFPAY ==
[2025-02-03 13:11] LABS: CA 15-3 6.4 U/mL (<32.4); Carcinoembryonic Antigen 2.0 ng/mL (0.0-5.0)
== END | disposition home or self-care (01) ==
LOC: COPL 11:37
PROVIDERS: PCP Family Medicine; Referring Provider Specialist; Visit Provider Specialist
DX: C50.911 Malignant neoplasm of unspecified site of right female breast (principal)
CPT/HCPCS: 36415; 82378; 86300